=== PATIENT | female | born 1960 | race Caucasian/White ===

== ENCOUNTER 2017-04-23 09:59 | Inpatient (IN) | payer OTHER ==
[~2017-04-23] VITALS: Ht 167.6 cm; Wt 91.9 kg
[~2017-04-23 09:59] MED LIST: MULT-506 PO
[2017-04-23] MEDS ORDERED: SODIUM CHLORIDE 0.9% 1000ML 1,000 ML IV STA ×2 (10:36)
[2017-04-23] MEDS ORDERED: ONDANSETRON INJ 2 MG/ML 2 ML VIAL IV STA (10:36)
[2017-04-23] MEDS ORDERED: IBUPROFEN 200 MG TAB PO STA (10:40)
--- NOTE | 2017-04-23 10:40 | EMERGENCY ROOM VISIT NOTE ---
History Report prepared by Marlo: Elli Lerner Under the Supervision of: Dr. Torin Garza M.D. First contact with patient: 10:08 Chief Complaint: FEVER Stated Complaint: FEVER, LOWER FACE NUMB, NECK PAIN, V History of Present Illness The patient is a 56 year old white female with no past medical history who presents to the ED with a cc of of a intermittent fever beginning 1 week ago. The patient states that she has been having flu-like symptoms for the last week with back pain. She reports that she has taken Tylenol and Advil without relief of her symptoms. Pt notes that she was seen at [facility] today and her fever was 104. Positive back pain, nausea. slight sore throat, vomiting, cough, dysuria. Pt was seen at [facility] and notes that 2 people at work have had similar symptoms that resolved sooner. Negative leg swelling, history of kidney stones. She did not get the flu shot yet. Source of History: patient Onset: 1 week ago Position: other (global) Quality: other (fever) Timing: intermittent Associated Symptoms: + sorethroat, + cough, + nausea, + vomiting, + back pain, + urinary symptoms Note: No leg swelling. Review of Systems See HPI for pertinent positives and negatives. A total of ten systems were reviewed and were otherwise negative. Past Medical & Surgical Medical Problems: (1) Cellulitis of left foot Family History No pertinent family history stated. Social History Smoking Status: Never Smoker Marital Status: Housing Status: lives with significant other Current/Historical Medications Scheduled Ocuvite Preservision (Ocuvite Preservision), 1 TAB PO DAILY Allergies Coded Allergies: No Known Allergies (Verified , 04/23/17) Physical Exam Vital Signs Date Time Temp Pulse Resp B/P (MAP) Pulse Ox O2 Delivery O2 Flow Rate FiO2 04/23/17 16:51 36.9 61 16 100/59 100 Room Air 04/23/17 15:36 62 18 106/62 100 Room Air 04/23/17 15:15 100 Room Air 04/23/17 14:55 59 04/23/17 14:46 36.9 54 16 113/59 97 Room Air 04/23/17 12:48 36.8 04/23/17 12:46 62 16 109/56 100 Room Air 04/23/17 11:49 74 24 120/60 100 Room Air 04/23/17 11:00 99 Room Air 04/23/17 10:56 72 14 90/55 98 Room Air 04/23/17 10:14 81 04/23/17 10:01 39.1 91 18 136/80 100 Room Air Physical Exam GENERAL: Awake, alert, well-appearing, NAD HENT: Normocephalic, atraumatic. EYES: Normal conjunctiva. Sclera non-icteric. NECK: Supple. No nuchal rigidity. FROM. No evidence of meningismus, no nuchal rigidity. RESPIRATORY: CTAB, no rhonchi, wheezing, crackles CARDIAC: RRR, no MRG ABDOMEN: Soft, BS+, Epigastric TTP, no suprapubic or upper quadrant tenderness MSK: No chest wall TTP, no LE edema, right sided CVA TTP NEURO: GCS 15, CN 2-12 intact, moves all 4s on command SKIN: No rash or jaundice noted. No rashes or vesicles noted. Medical Decision & Procedures ER Provider Diagnostic Interpretation: Radiology results as stated below per my review and radiologist interpretation: CHEST ONE VIEW PORTABLE FINDINGS: The lungs are clear. Cardiac silhouette is normal in size. No pleural effusions. No pneumothorax. IMPRESSION: No acute process. Electronically signed by: Ari Alonzo M.D. 04/23/2017 11:40 AM Dictated Date/Time: 04/23/2017 11:40 AM ABDOMEN AND PELVIS CT WITH IV CONTRAST COMPARISON STUDY: None. FINDINGS: The lung bases are clear. No pneumoperitoneum. No pneumatosis. No fractures within the visualized osseous structures. The gallbladder is distended with a few punctate gallstones. There is gallbladder wall thickening and pericholecystic inflammatory change. This is consistent with acute cholecystitis. Normal caliber common bile duct measuring 5 mm. The spleen, adrenal glands, pancreas, and kidneys are unremarkable. There are 2 hypodense lesions within the left hepatic lobe. These likely represent cysts. The dominant lesion measures 2.3 cm. No bowel wall thickening or obstruction. Normal appendix. The bladder, uterus, bilateral adnexa are unremarkable. IMPRESSION: 1. Above findings consistent with acute cholecystitis. 2. No bowel wall thickening or obstruction. 3. Left hepatic lobe cyst. Electronically signed by: Ari Alonzo M.D. 04/23/2017 1:59 PM Dictated Date/Time: 04/23/2017 1:53 PM Laboratory Results 04/23/17 10:12 Red Blood Count 4.41, Mean Corpuscular Volume 87.1, Mean Corpuscular Hemoglobin 30.2, Mean Corpuscular Hemoglobin Concent 34.6, Mean Platelet Volume 9.8, Neutrophils (%) (Auto) 83.8, Lymphocytes (%) (Auto) 5.7, Monocytes (%) (Auto) 9.0, Eosinophils (%) (Auto) 0.7, Basophils (%) (Auto) 0.2, Neutrophils # (Auto) 11.96, Lymphocytes # (Auto) 0.82, Monocytes # (Auto) 1.29, Eosinophils # (Auto) 0.10, Basophils # (Auto) 0.03 04/23/17 10:12 04/23/17 16:26 Test 04/23/17 10:12 04/23/17 10:57 04/23/17 12:49 White Blood Count 14.29 K/uL (4.8-10.8) Red Blood Count 4.41 M/uL (4.2-5.4) Hemoglobin 13.3 g/dL (12.0-16.0) Hematocrit 38.4 % (37-47) Mean Corpuscular Volume 87.1 fL (80-100) Mean Corpuscular Hemoglobin 30.2 pg (25-34) Mean Corpuscular Hemoglobin Concent 34.6 g/dl (32-36) Platelet Count 272 K/uL (130-400) Mean Platelet Volume 9.8 fL (7.4-10.4) Neutrophils (%) (Auto) 83.8 % Lymphocytes (%) (Auto) 5.7 % Monocytes (%) (Auto) 9.0 % Eosinophils (%) (Auto) 0.7 % Basophils (%) (Auto) 0.2 % Neutrophils # (Auto) 11.96 K/uL (1.4-6.5) Lymphocytes # (Auto) 0.82 K/uL (1.2-3.4) Monocytes # (Auto) 1.29 K/uL (0.11-0.59) Eosinophils # (Auto) 0.10 K/uL (0-0.5) Basophils # (Auto) 0.03 K/uL (0-0.2) RDW Standard Deviation 40.5 fL (36.4-46.3) RDW Coefficient of Variation 12.6 % (11.5-14.5) Immature Granulocyte % (Auto) 0.6 % Immature Granulocyte # (Auto) 0.09 K/uL (0.00-0.02) Prothrombin Time 12.4 SECONDS (9.0-12.0) Prothromb Time International Ratio 1.2 (0.9-1.1) Activated Partial Thromboplast Time 31.7 SECONDS (21.0-31.0) Partial Thromboplastin Ratio 1.2 Anion Gap 12.0 mmol/L (3-11) Est Creatinine Clear Calc Drug Dose 84.3 ml/min Estimated GFR () 98.4 Estimated GFR (Non- 84.9 BUN/Creatinine Ratio 12.8 (10-20) Calcium Level 8.5 mg/dl (8.5-10.1) Magnesium Level 2.0 mg/dl (1.8-2.4) Total Bilirubin 0.9 mg/dl (0.2-1) Direct Bilirubin 0.3 mg/dl (0-0.2) Aspartate Amino Transf (AST/SGOT) 68 U/L (15-37) Alanine Aminotransferase (ALT/SGPT) 38 U/L (12-78) Alkaline Phosphatase 222 U/L (45-117) Total Protein 7.2 gm/dl (6.4-8.2) Albumin 2.8 gm/dl (3.4-5.0) Lipase 121 U/L (73-393) Thyroid Stimulating Hormone (TSH) 0.829 uIu/ml (0.300-4.500) Influenza Type A Antigen Neg for Influ A (NEG) Influenza Type B Antigen Neg for Influ B (NEG) Urine Color YELLOW Urine Appearance CLEAR (CLEAR) Urine pH 7.5 (4.5-7.5) Urine Specific [place] 1.005 (1.000-1.030) Urine Protein NEG (NEG) Urine Glucose (UA) NEG (NEG) Urine Ketones NEG (NEG) Urine Occult Blood NEG (NEG) Urine Nitrite NEG (NEG) Urine Bilirubin NEG (NEG) Urine Urobilinogen POS (NEG) Urine Leukocyte Esterase SMALL (NEG) Urine WBC (Auto) 1-5 /hpf (0-5) Urine RBC (Auto) 0-4 /hpf (0-4) Urine Hyaline Casts (Auto) 0 /lpf (0-5) Urine Epithelial Cells (Auto) >30 /lpf (0-5) Urine Bacteria (Auto) NEG (NEG) Laboratory results reviewed by me Medications Administered Medications (Trade) Dose Ordered Sig/Estela Route Start Time Stop Time Status Last Admin Dose Admin Sodium Chloride 1,000 ml @ 999 mls/hr Q1H1M STAT IV 04/23/17 10:36 04/23/17 11:36 DC 04/23/17 10:36 999 MLS/HR Ondansetron HCl (Zofran Inj) 4 mg NOW STAT IV 04/23/17 10:36 04/23/17 10:39 DC 04/23/17 11:01 4 MG Sodium Chloride 1,000 ml @ 999 mls/hr Q1H1M STAT IV 04/23/17 10:36 04/23/17 11:36 DC 04/23/17 10:36 999 MLS/HR Ibuprofen (Advil Tab) 400 mg NOW STAT PO 04/23/17 10:40 04/23/17 10:41 DC 04/23/17 11:02 400 MG Magnesium Sulfate (Magnesium Sulfate) 1 gm NOW STAT IV 04/23/17 11:53 04/23/17 11:55 DC 04/23/17 13:11 1 GM Potassium Chloride (Tina Ciel Elix) 40 meq NOW STAT PO 04/23/17 11:53 04/23/17 11:55 DC 04/23/17 13:11 40 MEQ Ciprofloxacin/ Dextrose (Cipro / D5W) 400 mg NOW STAT IV 04/23/17 14:06 04/23/17 14:07 DC 04/23/17 14:42 400 MG Metronidazole (Flagyl / Nss) 500 mg NOW STAT IV 04/23/17 14:06 04/23/17 14:07 DC 04/23/17 15:31 500 MG ECG Indication: other (fever) Rate (beats per minute): 71 Rhythm: normal sinus Findings: no ectopy, other (normal intervals, t wave flattening anterior, no other STS changes or t wave inversions) ED Course 1008: The patient was evaluated in room A4. A complete history and physical exam was performed. 1414: I spoke to Dr. Randolph of general surgery. He will evaluate the patient. The patient will go to the operating room. 1612: The patient is going to the operating room with Dr. Randolph of general surgery. Upon reexamination, the patient was doing well. I discussed the test results and treatment plan with her. The patient will be evaluated for further management. Medical Decision Differential diagnosis: Etiologies such as renal colic, appendicitis, diverticulitis, mesenteric ischemia, aortic pathology, infections, inflammatory bowel disease, PUD, biliary pathology, UTI, as well as others were entertained. Patient was seen and evaluated at the bedside. Patient has been complaining of some fever for the last several days and today [facility] TEMPERATURE 104. Patient was given Tylenol this time. Patient has been complaining of some body aches as well as to some back pain. Patient denies any neurologic symptoms including weakness numbness. She denies any trauma. She states that 2 other family members have also been sick with similar symptoms however they improved after several days. Patient denies any history of IV drug abuse, no unintended weight loss, history of cancer, immunosuppressants, or chronic steroids. Patient has had some scant cough that has been nonproductive. Patient did not receive flu shot. Patient had blood work, supportive care, chest x-ray, and a CT the abdomen pelvis given her right- sided CVA tenderness and high fever. Patient's urine and chest x-ray clear. Patient did have a white count of 14. Patient's CT concerning for acute cholecystitis. CBD is not dilated. Patient did have mild elevations in her alkaline phosphatase but not in her T bili. Patient was given antibiotics and surgical consult. He agreed that the patient would benefit from a cholecystectomy today. Patient was admitted to general surgery. Medication Reconcilliation Current Medication List: was personally reviewed by me Blood Pressure Screening Patient's blood pressure: Elevated blood pressure Blood pressure disposition: Elevated BP felt to be situational Consults Time Called: 1410 Consulting Physician: Dr. Randolph - General Surgery Returned Call: [address] Randolph of general surgery. He will evaluate the patient. The patient will go to the operating room. Impression Primary Impression: Fever Additional Impressions: Acute cholecystitis Abdominal pain Scribe Attestation The scribe's documentation has been prepared under my direction and personally reviewed by me in its entirety. I confirm that the note above accurately reflects all work, treatment, procedures, and medical decision making performed by me. Departure Information Dispostion Being Evaluated By Surgeon Mahad Langley H.,M.D. (PCP) Patient Instructions My [facility] Problem Qualifiers Primary Impression: Fever Fever type: unspecified Qualified Codes: R50.9 - Fever, unspecified Additional Impressions: Abdominal pain Abdominal location: generalized Qualified Codes: R10.84 - Generalized abdominal pain
[2017-04-23] MEDS ORDERED: MULT-190 PO (10:45)
[2017-04-23] MEDS ORDERED: OPTIRAY 320 IV PRN (11:00)
[2017-04-23 11:05] LABS: BASO % 0.2 %; BASO ABS # 0.03 K/uL (0-0.2); COMPLETE YES; EOS % 0.7 %; HEMATOCRIT 38.4 % (37-47); IG% 0.6 %; LYMPH % 5.7 %; LYMPH ABS # 0.82 K/uL (1.2-3.4); MEAN CELL VOLUME 87.1 fL (80-100); MEAN CORPUSCULAR HEMOGLOBIN 30.2 pg (25-34); MEAN CORPUSCULAR HGB CONC 34.6 g/dl (32-36); MEAN PLATELET VOLUME 9.8 fL (7.4-10.4); NEUT % 83.8 %; PLATELET COUNT 272 K/uL (130-400); RED BLOOD COUNT 4.41 M/uL (4.2-5.4); WHITE BLOOD COUNT 14.29 K/uL (4.8-10.8)
[2017-04-23 11:14] LABS: BUN/CREATININE RATIO 12.8 (10-20); CALCIUM 8.5 mg/dl (8.5-10.1); CREATININE 0.79 mg/dl (0.60-1.20); POTASSIUM 2.8 mmol/L (3.5-5.1)
[2017-04-23 11:15] LABS: INR 1.2 (0.9-1.1); PARTIAL THROMBOPLASTIN RATIO 1.2; PROTHROMBIN TIME (PATIENT) 12.4 SECONDS (9.0-12.0)
[2017-04-23 11:25] LABS: THYROID STIMULATING HORMONE 0.829 uIu/ml (0.300-4.500)
--- NOTE | 2017-04-23 11:41 | DIAGNOSTIC IMAGING REPORT ---
CHEST ONE VIEW PORTABLE HISTORY: EVALUATE WEAKNESS COMPARISON: None. FINDINGS: The lungs are clear. Cardiac silhouette is normal in size. No pleural effusions. No pneumothorax. IMPRESSION: No acute process. Electronically signed by: rAi Alonzo M.D. 04/23/2017 11:40 AM Dictated Date/Time: 04/23/2017 11:40 AM
[2017-04-23] MEDS ORDERED: MAGNESIUM SULFATE 1GM / D5W 1 GM BAG IV STA (11:53)
[2017-04-23] MEDS ORDERED: POTASSIUM CHLORIDE 20 MEQ/15 ML UDC PO STA ×2 (11:53→18:16)
[2017-04-23 13:11] LABS: URINE APPEARANCE CLEAR (CLEAR); URINE BILIRUBIN NEG (NEG); URINE COLOR YELLOW; URINE EPITHELIAL CELL AUTO >30 /lpf (0-5); URINE NITRITE NEG (NEG); URINE PH 7.5 (4.5-7.5); URINE SPECIFIC GRAVITY 1.005 (1.000-1.030); UROBILINOGEN POS (NEG)
[2017-04-23 13:12] LABS: MANUAL MICROSCOPIC REQUIRED? NO; REVIEW REQ? NO
--- NOTE | 2017-04-23 14:00 | DIAGNOSTIC IMAGING REPORT ---
ABDOMEN AND PELVIS CT WITH IV CONTRAST CT DOSE: 839.72 mGy.cm HISTORY: Right-sided abdominal pain., Tmax 104, ?urinary symptoms TECHNIQUE: Multiaxial CT images of the abdomen and pelvis were performed following the use of intravenous contrast. A dose lowering technique was utilized adhering to the principles of ALARA. COMPARISON STUDY: None. FINDINGS: The lung bases are clear. No pneumoperitoneum. No pneumatosis. No fractures within the visualized osseous structures. The gallbladder is distended with a few punctate gallstones. There is gallbladder wall thickening and pericholecystic inflammatory change. This is consistent with acute cholecystitis. Normal caliber common bile duct measuring 5 mm. The spleen, adrenal glands, pancreas, and kidneys are unremarkable. There are 2 hypodense lesions within the left hepatic lobe. These likely represent cysts. The dominant lesion measures 2.3 cm. No bowel wall thickening or obstruction. Normal appendix. The bladder, uterus, bilateral adnexa are unremarkable. IMPRESSION: 1. Above findings consistent with acute cholecystitis. 2. No bowel wall thickening or obstruction. 3. Left hepatic lobe cyst. Electronically signed by: Ari Alonzo M.D. 04/23/2017 1:59 PM Dictated Date/Time: 04/23/2017 1:53 PM
[2017-04-23] MEDS ORDERED: METRONIDAZOLE 500MG / 100ML NSS IV STA (14:06)
[2017-04-23] MEDS ORDERED: CIPROFLOXACIN 400MG / 200ML D5W IV STA (14:06)
--- NOTE | 2017-04-23 14:41 | History and Physical ---
History & Physical Date Apr 23, 2017. Chief Complaint fever and abdominal pain- this is a consult from Dr Adler History of Present Illness The patient is a 56 year old female with complaints of Past Medical/Surgical History Medical Problems: (1) Cellulitis of left foot Additional History Hepatic Disease: No Endocrine Disorder: No Kidney Disease: No Hypertension: No Heart Disease: No Allergies Coded Allergies: No Known Allergies (Verified , 04/23/17) Home Medications Scheduled Ocuvite Preservision (Ocuvite Preservision), 1 TAB PO DAILY Physical Examination Skin: warm/dry Eyes: sclerae normal Head: atraumatic Neck: supple Respiratory/Chest: no respiratory distress Cardiovascular: + pertinent finding (tachy) Abdomen / GI: + pertinent finding (RUQ tenderness) Neurologic/Psych: alert Diagnosis severe acute cholecystitis Plan of Treatment pt is for laparoscopic cholecystectomy, possible open operation for OR today IV atbx, fluids
[2017-04-23] MEDS ORDERED: LACTATED RINGER'S 1000ML 1,000 ML IV SCH (14:45)
[2017-04-23 15:15] VITALS: O2SAT 100; Ht 167.6 cm; Wt 91.9 kg
[2017-04-23] MEDS ORDERED: BUPIVACAINE 0.5 % 5 MG/1 ML MPF 30ML VIAL ONE (16:52)
[2017-04-23] MEDS ORDERED: POTASSIUM CHLORIDE 10 MEQ / 100ML WTR IV STA (17:46)
[2017-04-23] MEDS ORDERED: ACETAMINOPHEN IV 100 ML IV PRN (18:45)
[2017-04-23] MEDS ORDERED: ONDANSETRON INJ 2 MG/ML 2 ML VIAL IV PRN (18:45)
--- NOTE | 2017-04-23 18:54 | History and Physical ---
History & Physical Date & Time of Service: Apr 23, 2017 at 18:40 Chief Complaint: Fever, Lower Face Numb, Neck Pain, V Primary Care Physician: Mahad Diamond M.D. History of Present Illness Source: patient, family, hospital records The patient is a 56-year-old female with no significant past medical history, who presents to the emergency department with 1 week of intermittent fever and chills with flulike symptoms. She was seen in [facility] today with temperature 104, worsening back pain, nausea, sore throat, and vomiting. Reportedly there were 2 people at work with similar symptoms that resolved sooner. She has not had any recent travels. Her oral intake has been progressively declining over the past week Past Medical/Surgical History Medical Problems: (1) Cellulitis of left foot Status: Resolved Family History Noncontributory Social History Smoking Status: Never Smoker Smokeless Tobacco Use: No Alcohol Use: none Drug Use: none Marital Status: Housing status: lives with family Occupational Status: employed Immunizations History of Influenza Vaccine: Unknown History of Tetanus Vaccine?: Unknown History of Pneumococcal: Unknown History of Hepatitis B Vaccine: Unknown Multi-Drug Resistant Organisms History of MDRO: No Allergies Coded Allergies: No Known Allergies (Verified , 04/23/17) Home Medications Scheduled Ocuvite Preservision (Ocuvite Preservision), 1 TAB PO DAILY Review of Systems The patient denies chest pain, palpitations, shortness of breath, cough, lower extremity swelling, vision change, hearing change, blood in urine or stool, dysuria, urinary frequency or urgency, lightheadedness , dizziness, headache, memory loss, rash, abnormal bruising or bleeding, imbalance, focal weakness, numbness or tingling in arms or legs, generalized arthralgias or myalgias, neck pain, or night sweats. The review of systems is otherwise negative other than for that already noted above, and at least 10 systems have been reviewed. Physical Exam Vital Signs Date Time Temp Pulse Resp B/P (MAP) Pulse Ox O2 Delivery O2 Flow Rate FiO2 04/23/17 18:10 60 16 120/60 100 Room Air 04/23/17 16:51 36.9 61 16 100/59 100 Room Air 04/23/17 15:36 62 18 106/62 100 Room Air 04/23/17 15:15 100 Room Air 04/23/17 14:55 59 10/15/17 14:46 36.9 54 16 113/59 97 Room Air 04/23/17 12:48 36.8 04/23/17 12:46 62 16 109/56 100 Room Air 04/23/17 11:49 74 24 120/60 100 Room Air 04/23/17 11:00 99 Room Air 04/23/17 10:56 72 14 90/55 98 Room Air 04/23/17 10:14 81 04/23/17 10:01 39.1 91 18 136/80 100 Room Air The patient is awake, well-developed and adequately nourished, alert and oriented 3, normocephalic and atraumatic, looks acutely ill with sweats, lying in bed and in mild distress. HEENT--PERRL, EOMI, mucous membranes and oropharynx very dry. Neck--supple, no JVD or bruits, thyroid normal, trachea midline, no adenopathy. Heart--normal S1 and S2, no extra beats, no murmurs, rubs or gallops. Lungs--clear bilaterally with good air movement, no respiratory distress, no accessory muscle use. Abdomen--decreased bowel sounds and soft. Tender epigastric and right upper quadrant. Nondistended. no hernias or masses, no organomegaly. Extremities--no cyanosis, clubbing or edema. There are good distal pulses b/l. Dermatologic--normal skin turgor, normal color, warm and dry, no abnormal lymph nodes, no rash. Neurologic--cranial nerves II through XII grossly intact, motor and sensory examination normal. Rheumatologic--normal range of motion, nontender, muscles and joints. Psychiatric--normal affect. Diagnostics Laboratory Results Results Past 24 Hours Test 04/23/17 10:12 04/23/17 10:57 04/23/17 12:49 04/23/17 16:26 Range/Units White Blood Count 14.29 4.8-10.8 K/uL Red Blood Count 4.41 4.2-5.4 M/uL Hemoglobin 13.3 12.0-16.0 g/dL Hematocrit 38.4 37-47 % Mean Corpuscular Volume 87.1 80-100 fL Mean Corpuscular Hemoglobin 30.2 25-34 pg Mean Corpuscular Hemoglobin Concent 34.6 32-36 g/dl Platelet Count 272 130-400 K/uL Mean Platelet Volume 9.8 7.4-10.4 fL Neutrophils (%) (Auto) 83.8 % Lymphocytes (%) (Auto) 5.7 % Monocytes (%) (Auto) 9.0 % Eosinophils (%) (Auto) 0.7 % Basophils (%) (Auto) 0.2 % Neutrophils # (Auto) 11.96 1.4-6.5 K/uL Lymphocytes # (Auto) 0.82 1.2-3.4 K/uL Monocytes # (Auto) 1.29 0.11-0.59 K/uL Eosinophils # (Auto) 0.10 0-0.5 K/uL Basophils # (Auto) 0.03 0-0.2 K/uL RDW Standard Deviation 40.5 36.4-46.3 fL RDW Coefficient of Variation 12.6 11.5-14.5 % Immature Granulocyte % (Auto) 0.6 % Immature Granulocyte # (Auto) 0.09 0.00-0.02 K/uL Prothrombin Time 12.4 9.0-12.0 SECONDS Prothromb Time International Ratio 1.2 0.9-1.1 Activated Partial Thromboplast Time 31.7 21.0-31.0 SECONDS Partial Thromboplastin Ratio 1.2 Sodium Level 135 136-145 mmol/L Potassium Level 2.8 3.5-5.1 mmol/L Chloride Level 100 98-107 mmol/L Carbon Dioxide Level 23 21-32 mmol/L Anion Gap 12.0 3-11 mmol/L Blood Urea Nitrogen 10 7-18 mg/dl Creatinine 0.79 0.60-1.20 mg/dl Est Creatinine Clear Calc Drug Dose 84.3 ml/min Estimated GFR () 98.4 Estimated GFR (Non- 84.9 BUN/Creatinine Ratio 12.8 10-20 Random Glucose 106 70-99 mg/dl Calcium Level 8.5 8.5-10.1 mg/dl Magnesium Level 2.0 1.8-2.4 mg/dl Total Bilirubin 0.9 0.2-1 mg/dl Direct Bilirubin 0.3 0-0.2 mg/dl Aspartate Amino Transf (AST/SGOT) 68 15-37 U/L Alanine Aminotransferase (ALT/SGPT) 38 12-78 U/L Alkaline Phosphatase 222 45-117 U/L Total Protein 7.2 6.4-8.2 gm/dl Albumin 2.8 3.4-5.0 gm/dl Lipase 121 73-393 U/L Thyroid Stimulating Hormone (TSH) 0.829 0.300-4.500 uIu/ml Influenza Type A Antigen Neg for Influ A NEG Influenza Type B Antigen Neg for Influ B NEG Urine Color YELLOW Urine Appearance CLEAR CLEAR Urine pH 7.5 4.5-7.5 Urine Specific [place] 1.005 1.000-1.030 Urine Protein NEG NEG Urine Glucose (UA) NEG NEG Urine Ketones NEG NEG Urine Occult Blood NEG NEG Urine Nitrite NEG NEG Urine Bilirubin NEG NEG Urine Urobilinogen POS NEG Urine Leukocyte Esterase SMALL NEG Urine WBC (Auto) 1-5 0-5 /hpf Urine RBC (Auto) 0-4 0-4 /hpf Urine Hyaline Casts (Auto) 0 0-5 /lpf Urine Epithelial Cells (Auto) >30 0-5 /lpf Urine Bacteria (Auto) NEG NEG Test 04/23/17 17:10 Range/Units Potassium Level 2.7 3.5-5.1 mmol/L Microbiology Results 04/23/17 Blood Culture, Received Pending 04/23/17 Blood Culture, Received Pending 04/23/17 Urine Culture, Received Pending Diagnostic Radiology Patient Name: LESLY MANRIQUEZ Unit Number: [id number] Dictated: 04/23/171139 Transcribed: 04/23/171139 [facility] Printed Date/Time: [~ rep prt dt]/[~ rep prt tm] [~ rep ct labl] - [~ rep ct ivnm] [facility] [place] [address] Dictated: 04/23/171139 Transcribed: 04/23/171139 [facility] Printed Date/Time: [~ rep prt dt]/[~ rep prt tm] [~ rep ct labl] - [~ rep ct ivnm] [~ rep ct add3]] CHEST ONE VIEW PORTABLE HISTORY: EVALUATE WEAKNESS COMPARISON: None. FINDINGS: The lungs are clear. Cardiac silhouette is normal in size. No pleural effusions. No pneumothorax. IMPRESSION: No acute process. Electronically signed by: Ari Alonzo M.D. 04/23/2017 11:40 AM Dictated Date/Time: 04/23/2017 11:40 AM The status of this report is Signed. Draft = Not yet reviewed or approved by Radiologist. Signed = Reviewed and approved by Radiologist. <AttendingPhy></AttendingPhy> <FamilyPhy>Mahad Diamond M.D.</FamilyPhy> < PrimaryPhy>Mahad Diamond M.D.</PrimaryPhy> <UnitNumber>[id number]</ UnitNumber> <VisitNumber>[id number]</VisitNumber> <PatientName>LESLY MANRIQUEZ</PatientName> <DateOfBirth>1960</DateOfBirth> <Location>[facility]</ Location> <ServiceDate>04/23/17</ServiceDate> <MNE>ESINDI</MNE> <OrderingPhy> Torin Garza M.D.</OrderingPhy> <OrderingPhyMNE>f rep ord dr dias</ OrderingPhyMNE> <DictatingPhyMNE>f rep dict dr dias</DictatingPhyMNE> <CCListMNE> f rep ct mne</CCListMNE> <AdmittingPhyMNE>f pt admit dr dias</AdmittingPhyMNE> < AttendingPhyMNE>f pt attend dr dias</AttendingPhyMNE> <ConsultingPhyMNE>f pt consult dr dias</ConsultingPhyMNE> <FamilyPhyMNE>f pt fam dr dias</FamilyPhyMNE> <OtherPhyMNE>f pt other dr dias</OtherPhyMNE> < PrimaryPhyMNE>f pt prim care dr dias</PrimaryPhyMNE> <ReferringPhyMNE>f pt referring dr dias</ReferringPhyMNE> Patient Name: LESLY MANRIQUEZ Unit Number: [id number] Dictated: 04/23/171352 Transcribed: 04/23/171352 [facility] Printed Date/Time: [~ rep prt dt]/[~ rep prt tm] [~ rep ct labl] - [~ rep ct ivnm] [facility] [place] [address] Dictated: 04/23/17 135 Transcribed: 04/23/171352 [facility] Printed Date/Time: [~ rep prt dt]/[~ rep prt tm] [~ rep ct labl] - [~ rep ct ivnm] ABDOMEN AND PELVIS CT WITH IV CONTRAST CT DOSE: 839.72 mGy.cm HISTORY: Right-sided abdominal pain., Tmax 104, ?urinary symptoms TECHNIQUE: Multiaxial CT images of the abdomen and pelvis were performed following the use of intravenous contrast. A dose lowering technique was utilized adhering to the principles of ALARA. COMPARISON STUDY: None. FINDINGS: The lung bases are clear. No pneumoperitoneum. No pneumatosis. No fractures within the visualized osseous structures. The gallbladder is distended with a few punctate gallstones. There is gallbladder wall thickening and pericholecystic inflammatory change. This is consistent with acute cholecystitis. Normal caliber common bile duct measuring 5 mm. The spleen, adrenal glands, pancreas, and kidneys are unremarkable. There are 2 hypodense lesions within the left hepatic lobe. These likely represent cysts. The dominant lesion measures 2.3 cm. No bowel wall thickening or obstruction. Normal appendix. The bladder, uterus, bilateral adnexa are unremarkable. IMPRESSION: 1. Above findings consistent with acute cholecystitis. 2. No bowel wall thickening or obstruction. 3. Left hepatic lobe cyst. Electronically signed by: Ari Alonzo M.D. 04/23/2017 1:59 PM Dictated Date/Time: 04/23/2017 1:53 PM The status of this report is Signed. Draft = Not yet reviewed or approved by Radiologist. Signed = Reviewed and approved by Radiologist. <AttendingPhy></AttendingPhy> <FamilyPhy>Mahad Diamond M.D.</FamilyPhy> < PrimaryPhy>Mahad Diamond M.D.</PrimaryPhy> <UnitNumber>[id number]</ UnitNumber> <VisitNumber>[id number]</VisitNumber> <PatientName>LESLY MANRIQUEZ</PatientName> <DateOfBirth>1960</DateOfBirth> <Location>[facility]</ Location> <ServiceDate>04/23/17</ServiceDate> <MNE>ESINDI</MNE> <OrderingPhy> Torin Garza M.D.</OrderingPhy> <OrderingPhyMNE>f rep ord dr dias</ OrderingPhyMNE> <DictatingPhyMNE>f rep dict dr dias</DictatingPhyMNE> <CCListMNE> f rep ct mne</CCListMNE> <AdmittingPhyMNE>f pt admit dr dias</AdmittingPhyMNE> < AttendingPhyMNE>f pt attend dr dias</AttendingPhyMNE> <ConsultingPhyMNE>f pt consult dr dias</ConsultingPhyMNE> <FamilyPhyMNE>f pt fam dr dias</FamilyPhyMNE> <OtherPhyMNE>f pt other dr dias</OtherPhyMNE> < PrimaryPhyMNE>f pt prim care dr dias</PrimaryPhyMNE> <ReferringPhyMNE>f pt referring dr dias</ReferringPhyMNE> EKG EKG shows normal sinus rhythm at 71 bpm, nonspecific ST-T changes. Impression Assessment and Plan Abnormal EKG/hypokalemia-- The patient will be admitted to telemetry for serial cardiac enzymes, cardiac rhythm monitoring and a 2-D echocardiogram with Dopplers. Add troponin to ED labs. Nothing by mouth status Give total 40 mEq of potassium IV. Change IV fluids of normal saline with KCl 20 mEq 150 ML's per hour. Follow serial BMP and magnesium levels. Acute cholecystitis-- Receive Cipro and Flagyl IV in the ED. Place on Zosyn 3.375 mg IV every 6 hours. Zofran 4 mg IV every 6 hours when necessary. Famotidine 20 mg IV every 12 hours Consults Gen. surgery Dr. Randolph. Level of Care Telemetry Advanced Directives Existing Advance Directive: No Existing Living Will: No Existing Power of Route Delivery Manager: No Resuscitation Status FULL RESUSCITATION VTE Prophylaxis VTE Risk Assessment Done? Y/N: Yes Risk Level: Moderate Given or contraindicated: SCD's Social Service Consult None Apply
[2017-04-23 19:41] VITALS: BP 125/63; PULSE 78; TEMP 37.1; O2SAT 100
[2017-04-23 20:00] VITALS: O2SAT 100
[2017-04-23] MEDS: NSS + 20MEQ KCL 1000ML 1,000 ML IV SCH (20:09)
[2017-04-23] MEDS ORDERED: PIPERACILL/TAZOBAC IV 3.375 GM in DEXTROSE 5% 100ML IV ONE (20:15)
[2017-04-23] MEDS ORDERED: PIPERACILL/TAZOBAC CONSULT ACTIVE PRN (20:15)
[2017-04-23] MEDS: POTASSIUM CHLR 10 MEQ / WTR 10 MEQ in PREMIXED WATER 100 ML IV SCH ×2 (21:11→22:21)
[2017-04-23] MEDS: FAMOTIDINE IV INJ 20 MG in DEXTROSE 5% 100ML 100 ML IV SCH (23:18)
[2017-04-23 23:40] VITALS: BP 134/63; PULSE 73; TEMP 36.9; O2SAT 100
[2017-04-23 23:59] VITALS: O2SAT 100
[2017-04-24] VITALS (13 sets, daily range): BP systolic 112–143; BP diastolic 59–83; PULSE 64–79; TEMP 36.3–36.9; O2SAT 93–100
[2017-04-24 03:03] LABS: BASO % 0.2 %; BASO ABS # 0.02 K/uL (0-0.2); COMPLETE YES; EOS % 1.6 %; HEMATOCRIT 34.7 % (37-47); IG% 0.5 %; LYMPH % 11.1 %; LYMPH ABS # 1.07 K/uL (1.2-3.4); MEAN CELL VOLUME 87.8 fL (80-100); MEAN CORPUSCULAR HEMOGLOBIN 29.4 pg (25-34); MEAN CORPUSCULAR HGB CONC 33.4 g/dl (32-36); MEAN PLATELET VOLUME 9.2 fL (7.4-10.4); MONO % 11.3 %; NEUT % 75.3 %; PLATELET COUNT 222 K/uL (130-400); RED BLOOD COUNT 3.95 M/uL (4.2-5.4); WHITE BLOOD COUNT 9.62 K/uL (4.8-10.8)
[2017-04-24] MEDS: PIPERACILL/TAZOBAC IV 3.375 GM in DEXTROSE 5% 100ML 100 ML IV SCH ×3 (03:05→18:30)
[2017-04-24] MEDS: NSS + 20MEQ KCL 1000ML 1,000 ML IV SCH ×4 (03:05→22:15)
[2017-04-24 03:17] LABS: INR 1.2 (0.9-1.1); PARTIAL THROMBOPLASTIN RATIO 1.3
[2017-04-24 03:35] LABS: ALT/SGPT 28 U/L (12-78); AST/SGOT 34 U/L (15-37); BUN/CREATININE RATIO 8.4 (10-20); CALCIUM 7.3 mg/dl (8.5-10.1); CARBON DIOXIDE 22 mmol/L (21-32); CHLORIDE 110 mmol/L (98-107); CREATININE 0.61 mg/dl (0.60-1.20); GLUCOSE 99 mg/dl (70-99); MAGNESIUM 2.3 mg/dl (1.8-2.4); POTASSIUM 3.3 mmol/L (3.5-5.1); SODIUM 141 mmol/L (136-145)
[2017-04-24 03:38] LABS: ALKALINE PHOSPHATASE 190 U/L (45-117); CKMB/CK RATIO 0.9 (0-3.0)
[2017-04-24 04:02] LABS: BLOOD UREA NITROGEN 5 mg/dl (7-18)
--- NOTE | 2017-04-24 05:49 | Surgery Progress Note ---
Surgery Progress Note Date of Service Apr 24, 2017. Subjective awake, alert afeb, vitals stable nausea Objective Vital Signs: Date Time Temp Pulse Resp B/P (MAP) Pulse Ox O2 Delivery O2 Flow Rate FiO2 04/24/17 04:09 36.9 69 22 131/59 (83) 99 Room Air 04/24/17 04:03 100 Room Air 04/23/17 23:59 100 Room Air 04/23/17 23:40 36.9 73 22 134/63 (86) 100 Room Air 04/23/17 20:00 100 Room Air 04/23/17 19:41 37.1 78 20 125/63 (83) 100 Room Air 04/23/17 19:10 75 16 109/57 95 Room Air 04/23/17 18:10 60 16 120/60 100 Room Air 04/23/17 16:51 36.9 61 16 100/59 100 Room Air 04/23/17 15:36 62 18 106/62 100 Room Air 04/23/17 15:15 100 Room Air 04/23/17 14:55 59 04/23/17 14:46 36.9 54 16 113/59 97 Room Air 04/23/17 12:48 36.8 04/23/17 12:46 62 16 109/56 100 Room Air 04/23/17 11:49 74 24 120/60 100 Room Air 04/23/17 11:00 99 Room Air 04/23/17 10:56 72 14 90/55 98 Room Air 04/23/17 10:14 81 04/23/17 10:01 39.1 91 18 136/80 100 Room Air General Appearance: no apparent distress Respiratory/Chest: no respiratory distress Abdomen: soft Laboratory Results: Results Past 24 Hours Test 04/23/17 10:12 04/23/17 10:57 04/23/17 12:49 04/23/17 16:26 Range/Units White Blood Count 14.29 4.8-10.8 K/uL Red Blood Count 4.41 4.2-5.4 M/uL Hemoglobin 13.3 12.0-16.0 g/dL Hematocrit 38.4 37-47 % Mean Corpuscular Volume 87.1 80-100 fL Mean Corpuscular Hemoglobin 30.2 25-34 pg Mean Corpuscular Hemoglobin Concent 34.6 32-36 g/dl Platelet Count 272 130-400 K/uL Mean Platelet Volume 9.8 7.4-10.4 fL Neutrophils (%) (Auto) 83.8 % Lymphocytes (%) (Auto) 5.7 % Monocytes (%) (Auto) 9.0 % Eosinophils (%) (Auto) 0.7 % Basophils (%) (Auto) 0.2 % Neutrophils # (Auto) 11.96 1.4-6.5 K/uL Lymphocytes # (Auto) 0.82 1.2-3.4 K/uL Monocytes # (Auto) 1.29 0.11-0.59 K/uL Eosinophils # (Auto) 0.10 0-0.5 K/uL Basophils # (Auto) 0.03 0-0.2 K/uL RDW Standard Deviation 40.5 36.4-46.3 fL RDW Coefficient of Variation 12.6 11.5-14.5 % Immature Granulocyte % (Auto) 0.6 % Immature Granulocyte # (Auto) 0.09 0.00-0.02 K/uL Prothrombin Time 12.4 9.0-12.0 SECONDS Prothromb Time International Ratio 1.2 0.9-1.1 Activated Partial Thromboplast Time 31.7 21.0-31.0 SECONDS Partial Thromboplastin Ratio 1.2 Sodium Level 135 136-145 mmol/L Potassium Level 2.8 3.5-5.1 mmol/L Chloride Level 100 98-107 mmol/L Carbon Dioxide Level 23 21-32 mmol/L Anion Gap 12.0 3-11 mmol/L Blood Urea Nitrogen 10 7-18 mg/dl Creatinine 0.79 0.60-1.20 mg/dl Est Creatinine Clear Calc Drug Dose 84.3 ml/min Estimated GFR () 98.4 Estimated GFR (Non- 84.9 BUN/Creatinine Ratio 12.8 10-20 Random Glucose 106 70-99 mg/dl Calcium Level 8.5 8.5-10.1 mg/dl Magnesium Level 2.0 1.8-2.4 mg/dl Total Bilirubin 0.9 0.2-1 mg/dl Direct Bilirubin 0.3 0-0.2 mg/dl Aspartate Amino Transf (AST/SGOT) 68 15-37 U/L Alanine Aminotransferase (ALT/SGPT) 38 12-78 U/L Alkaline Phosphatase 222 45-117 U/L Total Protein 7.2 6.4-8.2 gm/dl Albumin 2.8 3.4-5.0 gm/dl Lipase 121 73-393 U/L Thyroid Stimulating Hormone (TSH) 0.829 0.300-4.500 uIu/ml Influenza Type A Antigen Neg for Influ A NEG Influenza Type B Antigen Neg for Influ B NEG Urine Color YELLOW Urine Appearance CLEAR CLEAR Urine pH 7.5 4.5-7.5 Urine Specific [place] 1.005 1.000-1.030 Urine Protein NEG NEG Urine Glucose (UA) NEG NEG Urine Ketones NEG NEG Urine Occult Blood NEG NEG Urine Nitrite NEG NEG Urine Bilirubin NEG NEG Urine Urobilinogen POS NEG Urine Leukocyte Esterase SMALL NEG Urine WBC (Auto) 1-5 0-5 /hpf Urine RBC (Auto) 0-4 0-4 /hpf Urine Hyaline Casts (Auto) 0 0-5 /lpf Urine Epithelial Cells (Auto) >30 0-5 /lpf Urine Bacteria (Auto) NEG NEG Test 04/23/17 17:10 04/24/17 02:54 Range/Units Potassium Level 2.7 3.3 3.5-5.1 mmol/L Troponin I < 0.015 < 0.015 0-0.045 ng/ml White Blood Count 9.62 4.8-10.8 K/uL Red Blood Count 3.95 4.2-5.4 M/uL Hemoglobin 11.6 12.0-16.0 g/dL Hematocrit 34.7 37-47 % Mean Corpuscular Volume 87.8 80-100 fL Mean Corpuscular Hemoglobin 29.4 25-34 pg Mean Corpuscular Hemoglobin Concent 33.4 32-36 g/dl Platelet Count 222 130-400 K/uL Mean Platelet Volume 9.2 7.4-10.4 fL Neutrophils (%) (Auto) 75.3 % Lymphocytes (%) (Auto) 11.1 % Monocytes (%) (Auto) 11.3 % Eosinophils (%) (Auto) 1.6 % Basophils (%) (Auto) 0.2 % Neutrophils # (Auto) 7.24 1.4-6.5 K/uL Lymphocytes # (Auto) 1.07 1.2-3.4 K/uL Monocytes # (Auto) 1.09 0.11-0.59 K/uL Eosinophils # (Auto) 0.15 0-0.5 K/uL Basophils # (Auto) 0.02 0-0.2 K/uL RDW Standard Deviation 41.0 36.4-46.3 fL RDW Coefficient of Variation 12.6 11.5-14.5 % Immature Granulocyte % (Auto) 0.5 % Immature Granulocyte # (Auto) 0.05 0.00-0.02 K/uL Prothrombin Time 13.0 9.0-12.0 SECONDS Prothromb Time International Ratio 1.2 0.9-1.1 Activated Partial Thromboplast Time 34.3 21.0-31.0 SECONDS Partial Thromboplastin Ratio 1.3 Sodium Level 141 136-145 mmol/L Chloride Level 110 98-107 mmol/L Carbon Dioxide Level 22 21-32 mmol/L Anion Gap 9.0 3-11 mmol/L Blood Urea Nitrogen 5 7-18 mg/dl Creatinine 0.61 0.60-1.20 mg/dl Est Creatinine Clear Calc Drug Dose 109.2 ml/min Estimated GFR () 119.1 Estimated GFR (Non- 102.8 BUN/Creatinine Ratio 8.4 10-20 Random Glucose 99 70-99 mg/dl Calcium Level 7.3 8.5-10.1 mg/dl Magnesium Level 2.3 1.8-2.4 mg/dl Total Bilirubin 0.6 0.2-1 mg/dl Direct Bilirubin 0.3 0-0.2 mg/dl Aspartate Amino Transf (AST/SGOT) 34 15-37 U/L Alanine Aminotransferase (ALT/SGPT) 28 12-78 U/L Alkaline Phosphatase 190 45-117 U/L Total Creatine Kinase 53 26-192 U/L Creatine Kinase MB 0.5 0.5-3.6 ng/ml Creatine Kinase MB Ratio 0.9 0-3.0 Total Protein 6.0 6.4-8.2 gm/dl Albumin 2.3 3.4-5.0 gm/dl Microbiology Results 04/23/17 Blood Culture, Received Pending 04/23/17 Blood Culture, Received Pending 04/23/17 Urine Culture, Received Pending Assessment & Plan 04/24/17- check am labs/ K+, check with medical team- plan for lap benjamin today if possible- suspect infected gallbladder
[2017-04-24] MEDS ORDERED: POTASSIUM CHLORIDE 20 MEQ/15 ML UDC PO STA (05:53)
[2017-04-24] MEDS: POTASSIUM CHLR 10MEQ / WTR IV SCH ×2 (06:35→08:09)
[2017-04-24] MEDS ORDERED: INFLUENZA ADMINISTRATION CHARGE ONE (07:00)
[2017-04-24] MEDS ORDERED: INFLUENZA VIRUS QUAD VACCINE 0.5 ML SYR IM. ONE (07:00)
[2017-04-24] MEDS: FAMOTIDINE IV INJ 20 MG in DEXTROSE 5% 100ML 100 ML IV SCH ×2 (07:00→18:30)
[2017-04-24 09:26] LABS: BUN/CREATININE RATIO 7.5 (10-20); CALCIUM 7.7 mg/dl (8.5-10.1); CREATININE 0.59 mg/dl (0.60-1.20); POTASSIUM 3.5 mmol/L (3.5-5.1)
[2017-04-24] MEDS ORDERED: PROPOFOL IV EMULSION 10 MG/ML 20 ML VIAL IV ONE (10:00)
[2017-04-24] MEDS ORDERED: LIDOCAINE HCL 2% 2 ML VIAL (20MG/ML) ONE (10:00)
[2017-04-24] MEDS ORDERED: ONDANSETRON INJ 2 MG/ML 2 ML VIAL ONE (10:00)
[2017-04-24] MEDS ORDERED: FENTANYL CITRATE INJ 50 MCG/1 ML 2 ML VIAL ONE (10:00)
[2017-04-24] MEDS ORDERED: SUCCINYLCHOLINE CHLORIDE 20 MG/ML 10 ML VIAL IV ONE (10:00)
[2017-04-24] MEDS ORDERED: GLYCOPYRROLATE INJ 0.2 MG/ML VIAL ONE (10:00)
[2017-04-24] MEDS ORDERED: EpHEDrine SULFATE INJ 50 MG/ML AMP ONE (10:00)
[2017-04-24] MEDS ORDERED: PHENYLEPHRINE HCL INJ 10 MG/ML VIAL ONE (10:00)
[2017-04-24] MEDS ORDERED: DEXAMETHASONE SOD INJ 4 MG/ML VIAL ONE (10:00)
[2017-04-24] MEDS ORDERED: MIDAZOLAM HCL 1 MG/ML 2ML VIAL ONE (10:00)
[2017-04-24] MEDS ORDERED: NEOSTIGMINE METHYLSULFATE 5 MG/5 ML SYR ONE (10:00)
[2017-04-24] MEDS ORDERED: PHENYLEPHRINE 100MCG/ML 5ML SYR IV PRN (10:15)
[2017-04-24] MEDS ORDERED: PROMETHAZINE HCL INJ 12.5 MG in SODIUM CHLORIDE 0.9% 50ML 50 ML IV PRN (10:15)
[2017-04-24] MEDS ORDERED: ATROPINE SULFATE 0.1 MG/ML 5ML SYR IV PRN (10:15)
[2017-04-24] MEDS ORDERED: EpHEDrine SULFATE INJ 50 MG/ML AMP IV PRN (10:15)
[2017-04-24] MEDS ORDERED: ONDANSETRON INJ 2 MG/ML 2 ML VIAL IV PRN (10:15)
[2017-04-24] MEDS ORDERED: LABETALOL HCL IV 5 MG/ML 20ML IV PRN (10:15)
[2017-04-24] MEDS ORDERED: CONRAY 60% 50 ML VIAL ONE (10:38)
[2017-04-24] MEDS ORDERED: BUPIVACAINE 0.5 % 5 MG/1 ML MPF 30ML VIAL ONE (10:39)
--- NOTE | 2017-04-24 11:03 | Progress Note ---
Subjective Date of Service: Apr 24, 2017. Subjective Pt evaluation today including: conversation w/ patient, physical exam, chart review, lab review, review of studies, conversation w/ it solutions sales consultant, review of inpatient medication list feeling fairly good notes that she's not having any pain (actually never did) just nausea. but right now that's controlled. no prior medical hx of concern, no cardio-pulmonary problems Problem List Medical Problems: (1) Abdominal pain Status: Acute (2) Acute cholecystitis Status: Acute (3) Fever Status: Acute Review of Systems all other ROS otherwise negative except for as above Objective Vital Signs Date Time Temp Pulse Resp B/P (MAP) Pulse Ox O2 Delivery O2 Flow Rate FiO2 04/24/17 09:11 99 Room Air 04/24/17 08:15 36.4 69 19 116/67 (83) 99 Room Air 04/24/17 08:00 Room Air 04/24/17 04:09 36.9 69 22 131/59 (83) 99 Room Air 04/24/17 04:03 100 Room Air 04/23/17 23:59 100 Room Air 04/23/17 23:40 36.9 73 22 134/63 (86) 100 Room Air 04/23/17 20:00 100 Room Air 04/23/17 19:41 37.1 78 20 125/63 (83) 100 Room Air 04/23/17 19:10 75 16 109/57 95 Room Air 04/23/17 18:10 60 16 120/60 100 Room Air 04/23/17 16:51 36.9 61 16 100/59 100 Room Air 04/23/17 15:36 62 18 106/62 100 Room Air 04/23/17 15:15 100 Room Air 04/23/17 14:55 59 04/23/17 14:46 36.9 54 16 113/59 97 Room Air 04/23/17 12:48 36.8 04/23/17 12:46 62 16 109/56 100 Room Air 04/23/17 11:49 74 24 120/60 100 Room Air 04/23/17 11:00 99 Room Air Physical Exam General Appearance: no apparent distress Eyes: EOMI ENT: hearing grossly normal Neck: trachea midline Respiratory/Chest: no respiratory distress, no accessory muscle use Extremities: normal range of motion Neurologic/Psychiatric: ophthalmic technologist II-XII nml as tested, alert, normal mood/affect Skin: normal color, warm/dry Laboratory Results Last 24 Hours Test 04/23/17 10:57 04/23/17 12:49 04/23/17 16:26 04/23/17 17:10 Influenza Type A Antigen Neg for Influ A Influenza Type B Antigen Neg for Influ B Urine Color YELLOW Urine Appearance CLEAR Urine pH 7.5 Urine Specific [place] 1.005 Urine Protein NEG Urine Glucose (UA) NEG Urine Ketones NEG Urine Occult Blood NEG Urine Nitrite NEG Urine Bilirubin NEG Urine Urobilinogen POS Urine Leukocyte Esterase SMALL Urine WBC (Auto) 1-5 /hpf Urine RBC (Auto) 0-4 /hpf Urine Hyaline Casts (Auto) 0 /lpf Urine Epithelial Cells (Auto) >30 /lpf Urine Bacteria (Auto) NEG Potassium Level mmol/L 2.7 mmol/L Troponin I < 0.015 ng/ml Test 04/24/17 02:54 04/24/17 08:50 White Blood Count 9.62 K/uL Red Blood Count 3.95 M/uL Hemoglobin 11.6 g/dL Hematocrit 34.7 % Mean Corpuscular Volume 87.8 fL Mean Corpuscular Hemoglobin 29.4 pg Mean Corpuscular Hemoglobin Concent 33.4 g/dl Platelet Count 222 K/uL Mean Platelet Volume 9.2 fL Neutrophils (%) (Auto) 75.3 % Lymphocytes (%) (Auto) 11.1 % Monocytes (%) (Auto) 11.3 % Eosinophils (%) (Auto) 1.6 % Basophils (%) (Auto) 0.2 % Neutrophils # (Auto) 7.24 K/uL Lymphocytes # (Auto) 1.07 K/uL Monocytes # (Auto) 1.09 K/uL Eosinophils # (Auto) 0.15 K/uL Basophils # (Auto) 0.02 K/uL RDW Standard Deviation 41.0 fL RDW Coefficient of Variation 12.6 % Immature Granulocyte % (Auto) 0.5 % Immature Granulocyte # (Auto) 0.05 K/uL Prothrombin Time 13.0 SECONDS Prothromb Time International Ratio 1.2 Activated Partial Thromboplast Time 34.3 SECONDS Partial Thromboplastin Ratio 1.3 Sodium Level 141 mmol/L 140 mmol/L Potassium Level 3.3 mmol/L 3.5 mmol/L Chloride Level 110 mmol/L 108 mmol/L Carbon Dioxide Level 22 mmol/L 23 mmol/L Anion Gap 9.0 mmol/L 9.0 mmol/L Blood Urea Nitrogen 5 mg/dl 4 mg/dl Creatinine 0.61 mg/dl 0.59 mg/dl Est Creatinine Clear Calc Drug Dose 109.2 ml/min 124.4 ml/min Estimated GFR () 119.1 120.4 Estimated GFR (Non- 102.8 103.9 BUN/Creatinine Ratio 8.4 7.5 Random Glucose 99 mg/dl 89 mg/dl Calcium Level 7.3 mg/dl 7.7 mg/dl Magnesium Level 2.3 mg/dl Total Bilirubin 0.6 mg/dl Direct Bilirubin 0.3 mg/dl Aspartate Amino Transf (AST/SGOT) 34 U/L Alanine Aminotransferase (ALT/SGPT) 28 U/L Alkaline Phosphatase 190 U/L Total Creatine Kinase 53 U/L Creatine Kinase MB 0.5 ng/ml Creatine Kinase MB Ratio 0.9 Troponin I < 0.015 ng/ml Total Protein 6.0 gm/dl Albumin 2.3 gm/dl Assessment and Plan cholecystitis - for OR today. medically acceptable (overall low risk) for planned procedure. continue zosyn for now hypokalemia/EKG changes - K improved. likely was poor PO intake/GI losses with gallbladder disease. replaced to 3.5 continue to follow. once PO intake improves, likely this will improve as well DVT proph - early ambulation dispo - post op anticipate she'll be safe for med surg since K no longer low
--- NOTE | 2017-04-24 11:55 | ECHOCARDIOGRAM REPORT ---
*NOTICE TO RECEIVING [facility] This information is strictly Confidential and protected under [place] law. [place] law prohibits you from making any further disclosure of this information unless further disclosure is expressly permitted by the written consent of the person to whom it pertains or is authorized by law. A general authorization for the release of medical or other information is not sufficient for this purpose. Hospital accepts no responsibility if the information is made available to any other person, INCLUDING THE PATIENT. Interpretation Summary * Name: LESLY MANRIQUEZ Study Date: 04/24/2017 06:28 AM BP: 131/59 mmHg * Patient Location: C.2E\S\E201\S\1 HR: 72 * : 1960 (M/d/yyyy) Gender: Female Height: 66 in * Age: 56 yrs Ethnicity: CA Weight: 165 lb * Ordering Physician: Chad Ramos * Referring Physician: Self, Referred * Performed By: Radha Mejia RCS * * Reason For Study: ABNORMAL EKG / ACUTE CHOLECYSTITIS * BSA: 1.8 m2 * -- Conclusions -- * Left ventricular systolic function is normal. * No regional wall motion abnormalities noted. * Ejection Fraction = 55-60%. * There is mild concentric left ventricular hypertrophy. * No significant valvular pathology. Procedure Details * A complete two-dimensional transthoracic echocardiogram was performed (2D, M-mode, Doppler and color flow Doppler). Left Ventricle * The left ventricle is normal in size. * There is mild concentric left ventricular hypertrophy. * Left ventricular systolic function is normal. * Ejection Fraction = 55-60%. * No regional wall motion abnormalities noted. Right Ventricle * The right ventricle is grossly normal size. * The right ventricular systolic function is normal as assessed by tricuspid annular plane systolic excursion (TAPSE) (normal >1.5 cm). Atria * The left atrial size is normal. * Right atrial size is normal. * No ASD detected; PFO is not assessed. Mitral Valve * The mitral valve is normal in structure and function. * There is no mitral valve stenosis. * Significant mitral regurgitation is absent. Tricuspid Valve * The tricuspid valve is not well visualized, but is grossly normal. * There is no tricuspid stenosis. * There is trace tricuspid regurgitation. Aortic Valve * The aortic valve is not well visualized. * The aortic valve opens well. * No hemodynamically significant valvular aortic stenosis. * There is no significant aortic regurgitation. Pulmonic Valve * The pulmonary valve is not well seen, but the Doppler examination is normal without significant regurgitation or stenosis. Great Vessels * The aortic root is normal size. * The pulmonary is not well visualized. Pericardium/Pleural * There is no pericardial effusion. Great Vessels * Normal inferior vena cava size and collapsability with sniff indicates a normal right atrial pressure of 3 mmHg MMode 2D Measurements and Calculations IVSd 1.2 cm IVSs 1.7 cm LVIDd 4.9 cm LVIDs 3.7 cm LVPWd 1.2 cm LVPWs 1.5 cm IVS/LVPW 0.95 FS 24.8 % EDV(Teich) 114.1 ml ESV(Teich) 58.3 ml EF(Teich) 48.9 % EDV(cubed) 119.4 ml ESV(cubed) 50.8 ml EF(cubed) 57.5 % % IVS thick 47.4 % % LVPW thick 23.0 % LV mass(C)d 226.7 grams LV mass(C)dI 123.0 grams/m\S\2 LV mass(C)s 234.9 grams LV mass(C)sI 127.5 grams/m\S\2 SV(Teich) 55.9 ml SI(Teich) 30.3 ml/m\S\2 SV(cubed) 68.6 ml SI(cubed) 37.2 ml/m\S\2 Ao root diam 3.1 cm Ao root area 7.7 cm\S\2 ACS 2.0 cm LA dimension 3.3 cm LA/Ao 1.1 LVOT diam 2.0 cm LVOT area 3.3 cm\S\2 Doppler Measurements and Calculations MV E max rhiannon 79.3 cm/sec MV A max rhiannon 57.7 cm/sec MV E/A 1.4 MV P1/2t max rhiannon 100.9 cm/sec MV P1/2t 57.4 msec MVA(P1/2t) 3.8 cm\S\2 MV dec slope 514.7 cm/sec\S\2 MV dec time 0.15 sec Ao V2 max 156.5 cm/sec Ao max PG 9.8 mmHg Ao max PG (full) 1.9 mmHg NEIL(V,A) 3.0 cm\S\2 NEIL(V,D) 3.0 cm\S\2 LV V1 max PG 7.9 mmHg LV V1 max 140.9 cm/sec
--- NOTE | 2017-04-24 12:05 | Medical Student: [facility] ---
Med Student History & Physical Date & Time of Service: Apr 24, 2017 at 11:52 Chief Complaint: Abnormal Ekg; Acute Cholecystitis Primary Care Physician: Mahad Diamond M.D. History of Present Illness Source: patient Iesha is a 56-year-old female who presents to med/surg from the ED for vomiting , high fever, and back pain. Patients states that she also has a cough and dysuria. These symptoms had been happening intermittently for the last week, and when Tylenol and Advil didn't lower her fever, she went to [facility] yesterday (04/23) morning. There she had a fever of 104 and was sent to the ED. She denies headache, chest pain, shortness of breath, abdominal pain, diarrhea, constipation, hematuria, urinary incontinence. Note: EKG done in ED was read as being abnormal. Will need followed. No PMH of gallstones, cholecystitis, pancreatitis, abdominal surgery, kidney stones. Denies use of tobacco and illicit drugs. Was evaluated and admitted by general surgery in the ED. No known allergies. Past Medical/Surgical History Medical Problems: (1) Abdominal pain Status: Acute (2) Acute cholecystitis Status: Acute (3) Fever Status: Acute Family History No pertinent family hx. Social History Smoking Status: Never Smoker Smokeless Tobacco Use: No Alcohol Use: none Drug Use: none Marital Status: Housing status: lives with family Occupational Status: employed Immunizations History of Influenza Vaccine: Unknown History of Tetanus Vaccine?: Unknown History of Pneumococcal: Unknown History of Hepatitis B Vaccine: Unknown Allergies Coded Allergies: No Known Allergies (Verified , 04/23/17) Medications Ocuvite Preservision (Ocuvite Preservision), 1 TAB PO DAILY Review of Systems Constitutional: + fever, + chills ENT: No nasal symptoms, No sore throat Respiratory: + cough, No wheezing, No shortness of breath Cardiovascular: No chest pain, No palpitations Abdomen: + nausea, + vomiting, No diarrhea, No constipation Musculoskeletal: No swelling, No calf pain Genitourinary - Female: + dysuria, No urinary incontinence, No hematuria Neurologic: No numbness/tingling Psychiatric: No depression symptoms, No anxiety Integumentary: No rash, No itch Physical Exam Vital Signs (24 Hours) Date Time Temp Pulse Resp B/P (MAP) Pulse Ox O2 Delivery O2 Flow Rate FiO2 10/16/17 09:11 99 Room Air 04/24/17 08:15 36.4 69 19 116/67 (83) 99 Room Air 04/24/17 08:00 Room Air 04/24/17 04:09 36.9 69 22 131/59 (83) 99 Room Air 04/24/17 04:03 100 Room Air 04/23/17 23:59 100 Room Air 04/23/17 23:40 36.9 73 22 134/63 (86) 100 Room Air 04/23/17 20:00 100 Room Air 04/23/17 19:41 37.1 78 20 125/63 (83) 100 Room Air 04/23/17 19:10 75 16 109/57 95 Room Air 04/23/17 18:10 60 16 120/60 100 Room Air 04/23/17 16:51 36.9 61 16 100/59 100 Room Air 04/23/17 15:36 62 18 106/62 100 Room Air 04/23/17 15:15 100 Room Air 04/23/17 14:55 59 04/23/17 14:46 36.9 54 16 113/59 97 Room Air 04/23/17 12:48 36.8 04/23/17 12:46 62 16 109/56 100 Room Air General Appearance: WD/WN, no apparent distress Head: normocephalic, atraumatic Eyes: normal inspection, PERRL, EOMI Neck: supple, no adenopathy Respiratory/Chest: chest non-tender, lungs clear, normal breath sounds Cardiovascular: regular rate, rhythm, no edema, no gallop, no murmur Abdomen/GI: soft, no pulsatile mass, + tenderness (epigastric), + abnormal bowel sounds (decreased) Back: no CVA tenderness Extremities/Musculoskelatal: no calf tenderness, no pedal edema Neurologic/Psych: stakeholder manager II-XII nml as tested Skin: normal color, warm/dry Diagnostics Laboratory Results Results Past 24 Hours Test 04/23/17 12:49 04/23/17 16:26 04/23/17 17:10 04/24/17 02:54 Range/Units Urine Color YELLOW Urine Appearance CLEAR CLEAR Urine pH 7.5 4.5-7.5 Urine Specific [place] 1.005 1.000-1.030 Urine Protein NEG NEG Urine Glucose (UA) NEG NEG Urine Ketones NEG NEG Urine Occult Blood NEG NEG Urine Nitrite NEG NEG Urine Bilirubin NEG NEG Urine Urobilinogen POS NEG Urine Leukocyte Esterase SMALL NEG Urine WBC (Auto) 1-5 0-5 /hpf Urine RBC (Auto) 0-4 0-4 /hpf Urine Hyaline Casts (Auto) 0 0-5 /lpf Urine Epithelial Cells (Auto) >30 0-5 /lpf Urine Bacteria (Auto) NEG NEG Potassium Level 2.7 3.3 3.5-5.1 mmol/L Troponin I < 0.015 < 0.015 0-0.045 ng/ml White Blood Count 9.62 4.8-10.8 K/uL Red Blood Count 3.95 4.2-5.4 M/uL Hemoglobin 11.6 12.0-16.0 g/dL Hematocrit 34.7 37-47 % Mean Corpuscular Volume 87.8 80-100 fL Mean Corpuscular Hemoglobin 29.4 25-34 pg Mean Corpuscular Hemoglobin Concent 33.4 32-36 g/dl Platelet Count 222 130-400 K/uL Mean Platelet Volume 9.2 7.4-10.4 fL Neutrophils (%) (Auto) 75.3 % Lymphocytes (%) (Auto) 11.1 % Monocytes (%) (Auto) 11.3 % Eosinophils (%) (Auto) 1.6 % Basophils (%) (Auto) 0.2 % Neutrophils # (Auto) 7.24 1.4-6.5 K/uL Lymphocytes # (Auto) 1.07 1.2-3.4 K/uL Monocytes # (Auto) 1.09 0.11-0.59 K/uL Eosinophils # (Auto) 0.15 0-0.5 K/uL Basophils # (Auto) 0.02 0-0.2 K/uL RDW Standard Deviation 41.0 36.4-46.3 fL RDW Coefficient of Variation 12.6 11.5-14.5 % Immature Granulocyte % (Auto) 0.5 % Immature Granulocyte # (Auto) 0.05 0.00-0.02 K/uL Prothrombin Time 13.0 9.0-12.0 SECONDS Prothromb Time International Ratio 1.2 0.9-1.1 Activated Partial Thromboplast Time 34.3 21.0-31.0 SECONDS Partial Thromboplastin Ratio 1.3 Sodium Level 141 136-145 mmol/L Chloride Level 110 98-107 mmol/L Carbon Dioxide Level 22 21-32 mmol/L Anion Gap 9.0 3-11 mmol/L Blood Urea Nitrogen 5 7-18 mg/dl Creatinine 0.61 0.60-1.20 mg/dl Est Creatinine Clear Calc Drug Dose 109.2 ml/min Estimated GFR () 119.1 Estimated GFR (Non- 102.8 BUN/Creatinine Ratio 8.4 10-20 Random Glucose 99 70-99 mg/dl Calcium Level 7.3 8.5-10.1 mg/dl Magnesium Level 2.3 1.8-2.4 mg/dl Total Bilirubin 0.6 0.2-1 mg/dl Direct Bilirubin 0.3 0-0.2 mg/dl Aspartate Amino Transf (AST/SGOT) 34 15-37 U/L Alanine Aminotransferase (ALT/SGPT) 28 12-78 U/L Alkaline Phosphatase 190 45-117 U/L Total Creatine Kinase 53 26-192 U/L Creatine Kinase MB 0.5 0.5-3.6 ng/ml Creatine Kinase MB Ratio 0.9 0-3.0 Total Protein 6.0 6.4-8.2 gm/dl Albumin 2.3 3.4-5.0 gm/dl Test 04/24/17 08:50 Range/Units Sodium Level 140 136-145 mmol/L Potassium Level 3.5 3.5-5.1 mmol/L Chloride Level 108 98-107 mmol/L Carbon Dioxide Level 23 21-32 mmol/L Anion Gap 9.0 3-11 mmol/L Blood Urea Nitrogen 4 7-18 mg/dl Creatinine 0.59 0.60-1.20 mg/dl Est Creatinine Clear Calc Drug Dose 124.4 ml/min Estimated GFR () 120.4 Estimated GFR (Non- 103.9 BUN/Creatinine Ratio 7.5 10-20 Random Glucose 89 70-99 mg/dl Calcium Level 7.7 8.5-10.1 mg/dl Microbiology Results 04/23/17 Urine Culture - Final, Complete MORE THAN THREE TYPES OF ORGANISMS NV... Impression Assessment and Plan This is a 56-year-old female who presents with vomiting, high fever, dysuria, and coughing. She has no pertinent medical history and is otherwise healthy. Differential diagnosis includes acute cholecystitis, pancreatitis, cholelithiasis, small bowel obstruction, kidney stone, pyelonephritis, acute hepatitis, appendicitis. Primary diagnosis: acute cholecystitis -Admit to med/surg by general surgery -Continue Zosyn started in ED -Control pain with hydrocodone -Control nausea with Zofran -Check potassium, alk phos, and LFTs prior to surgery (had low K on admission, has resolved) -Get repeat EKG -Proceed with laparoscopic cholecystectomy -Post-op DVT prophylaxis with immediate ambulation and/or SCDs. Abnormal EKG -Repeat study following surgery -Get echocardiogram - showed mild LVH -Consider consulting cardiology Level of Care Med/Surg Advanced Directives Existing Advance Directive: No Existing Living Will: No Existing Power of Director Client Services: No
--- NOTE | 2017-04-24 12:27 | [facility] Operative Report ---
Operative Report Operative Date Apr 24, 2017. Pre-Operative Diagnosis severe acute cholecystitis Post-Operative Diagnosis severe acute cholecystitis , gangrenous, purulent bile Procedure(s) Performed Laparoscopic cholecystectomy, drain Surgeon Dr. Barney Randolph Repairer Shoe Sticks Surgeon(s) Lamonte Pino PA-C Estimated Blood Loss 50ml Findings severe acute and chronic disease w/ purulent purulent Specimens A: Gallbladder and contents Drains #[id number] ROBINSON Anesthesia gen Complication(s) None Disposition Recovery Room / PACU I attest to the content of the Intraoperative Record and any orders documented therein. Any exceptions are noted below.
[2017-04-24] MEDS: FENTANYL CITRATE INJ 50 MCG/1 ML 2 ML VIAL IV PRN ×4 (12:32→12:47)
[2017-04-24] MEDS: HYDROmorphone INJ 1 MG/ML SYR IV PRN ×7 (12:32→13:02)
--- NOTE | 2017-04-24 12:49 | OPERATIVE REPORT ---
DATE OF OPERATION: 04/24/2017 NAME OF OPERATION: Laparoscopic cholecystectomy with drainage. PREOPERATIVE DIAGNOSIS: Acute cholecystitis. POSTOPERATIVE DIAGNOSIS: Same with severe chronic cholecystitis and gangrenous changes. STAFF SURGEON: Dr. Randolph. TIMBER SKIDDER: Gregorio Pino PA-C. PROCEDURE: The patient was brought in the operating room and placed on the operating table in supine position. Pneumatic stockings and orogastric tube were placed. Her abdomen was prepped and draped in usual fashion. 0.5% plain Marcaine was used to anesthetize the skin above the umbilicus. Dissection was carried down, placing a Veress needle, producing pneumoperitoneum. An 11 mm port was placed at this level. Under visualization, three 5 mm ports were placed, 1 cephalad and 2 laterally. The patient's omentum was adherent to the gallbladder and liver. With some difficulty, this was taken down, it was indicating severe chronic disease. Gallbladder was extremely thickened and inflamed, indicating gangrenous changes. It was aspirated of bile which was purulent. With some difficulty, the gallbladder was retracted. Dissection carried out at the herrera hepatis, identifying the cystic artery and cystic duct. These were clipped and transected. Then, the gallbladder dissected away from the liver bed. There was severe dense scar tissue in the posterior wall, indicating chronic inflammation. The gallbladder was placed in an Endobag. After appropriate hemostasis and irrigation, a #19 round Giovanny-Franks drain was placed through the lateral 5 mm port site into the subhepatic space, secured to the skin using 3-0 nylon suture. Using a 5 mm scope, the Endobag with gallbladder was removed through the umbilical site. I did have to enlarge the skin incision and the fascial incision to remove the very large gallbladder. Fascia was closed using interrupted 0 PDS suture, skin reapproximated using 5-0 Prolene suture and dressings applied. The patient transferred to recovery room in stable condition. I attest to the content of the Intraoperative Record and any orders documented therein. Any exception s are noted below.
--- NOTE | 2017-04-24 13:18 | Anesthesiology Progress Note ---
Anesthesia Post Op Note Date & Time Apr 24, 2017 at 13:18 Vital Signs Pain Intensity: 5 Vital Signs Past 12 Hours Date Time Temp Pulse Resp B/P (MAP) Pulse Ox O2 Delivery O2 Flow Rate FiO2 04/24/17 13:15 36.4 73 16 132/64 94 Nasal Cannula 3 04/24/17 13:05 69 16 138/57 94 Nasal Cannula 3 04/24/17 12:55 71 16 143/63 93 Nasal Cannula 3 04/24/17 12:45 71 16 155/74 92 Nasal Cannula 3 04/24/17 12:35 68 16 143/59 97 Oxymask 10 04/24/17 12:29 37.0 69 16 131/54 97 Oxymask 10 04/24/17 09:11 99 Room Air 04/24/17 08:15 36.4 69 19 116/67 (83) 99 Room Air 04/24/17 08:00 Room Air 04/24/17 04:09 36.9 69 22 131/59 (83) 99 Room Air 04/24/17 04:03 100 Room Air Notes Mental Status: alert / awake / arousable, participated in evaluation Pt Amnestic to Procedure: Yes Nausea / Vomiting: adequately controlled Pain: adequately controlled Airway Patency, RR, SpO2: stable & adequate BP & HR: stable & adequate Hydration State: stable & adequate Anesthetic Complications: no major complications apparent
[2017-04-24 15:50] LABS: CALCIUM 7.5 mg/dl (8.5-10.1); CREATININE 0.45 mg/dl (0.60-1.20); POTASSIUM 3.9 mmol/L (3.5-5.1)
[2017-04-24 15:55] LABS: ALB/GLOB RATIO 0.6 (0.9-2); PHOSPHORUS 2.4 mg/dl (2.5-4.9)
[2017-04-24] MEDS: MoRPHine SULFATE 4 MG/ML 1 ML CARP\\VIAL IV PRN ×2 (17:18→22:14)
[2017-04-25] MEDS: PIPERACILL/TAZOBAC IV 3.375 GM in DEXTROSE 5% 100ML 100 ML IV SCH ×3 (01:28→18:37)
[2017-04-25] MEDS: MoRPHine SULFATE 4 MG/ML 1 ML CARP\\VIAL IV PRN ×2 (01:28→05:32)
[2017-04-25 03:48] VITALS: BP 119/69; PULSE 64; TEMP 36.8; O2SAT 94
[2017-04-25] MEDS: NSS + 20MEQ KCL 1000ML 1,000 ML IV SCH ×4 (04:10→23:46)
[2017-04-25] MEDS ORDERED: MoRPHine SULFATE 2 MG/ML CARP IV PRN (05:45)
[2017-04-25] MEDS ORDERED: MoRPHine SULFATE 4 MG/ML 1 ML CARP\\VIAL IV PRN (05:45)
[2017-04-25] MEDS ORDERED: HYDROCODONE/ACETAMOPHEN 5/325MG TAB PO PRN (05:45)
[2017-04-25] MEDS: FAMOTIDINE IV INJ 20 MG in DEXTROSE 5% 100ML 100 ML IV SCH (06:12)
--- NOTE | 2017-04-25 06:30 | Surgery Progress Note ---
Surgery Progress Note Date of Service Apr 25, 2017. Subjective awake , alert urine output good Objective Vital Signs: Date Time Temp Pulse Resp B/P (MAP) Pulse Ox O2 Delivery O2 Flow Rate FiO2 04/25/17 03:48 36.8 64 16 119/69 (86) 94 Room Air 04/24/17 23:40 Room Air 04/24/17 23:05 36.9 65 16 112/66 (81) 93 Room Air 04/24/17 19:15 36.6 64 18 127/65 (85) 95 Room Air 04/24/17 17:13 36.6 79 18 135/83 (100) 97 Nasal Cannula 2.0 04/24/17 16:50 Nasal Cannula 2.0 04/24/17 16:18 36.8 66 16 93 2.0 04/24/17 16:15 36.8 72 18 135/70 (91) 96 Nasal Cannula 2.0 04/24/17 16:00 Room Air 04/24/17 15:21 93 Nasal Cannula 2.0 04/24/17 15:14 36.8 66 16 131/69 (89) 93 Nasal Cannula 2.0 04/24/17 14:57 94 Nasal Cannula 2.0 04/24/17 14:25 36.6 68 16 143/67 (92) 94 Nasal Cannula 2.0 04/24/17 14:05 Room Air 04/24/17 13:45 36.3 72 18 136/59 (84) 93 2.0 04/24/17 13:15 36.4 73 16 132/64 94 Nasal Cannula 3 04/24/17 13:05 69 16 138/57 94 Nasal Cannula 3 04/24/17 12:55 71 16 143/63 93 Nasal Cannula 3 04/24/17 12:45 71 16 155/74 92 Nasal Cannula 3 04/24/17 12:35 68 16 143/59 97 Oxymask 10 04/24/17 12:29 37.0 69 16 131/54 97 Oxymask 10 04/24/17 09:11 99 Room Air 04/24/17 08:15 36.4 69 19 116/67 (83) 99 Room Air 04/24/17 08:00 Room Air General Appearance: no apparent distress Respiratory/Chest: no respiratory distress Abdomen: soft Incision(s): drainage (expected- serosang) Laboratory Results: Results Past 24 Hours Test 10/16/17 08:50 04/24/17 14:17 04/25/17 04:44 Range/Units Sodium Level 140 140 136-145 mmol/L Potassium Level 3.5 3.9 3.5-5.1 mmol/L Chloride Level 108 109 98-107 mmol/L Carbon Dioxide Level 23 20 21-32 mmol/L Anion Gap 9.0 11.0 3-11 mmol/L Blood Urea Nitrogen 4 5 7-18 mg/dl Creatinine 0.59 0.45 0.60-1.20 mg/dl Est Creatinine Clear Calc Drug Dose 124.4 163.2 ml/min Estimated GFR () 120.4 131.7 Estimated GFR (Non- 103.9 113.6 BUN/Creatinine Ratio 7.5 12.0 10-20 Random Glucose 89 103 70-99 mg/dl Calcium Level 7.7 7.5 8.5-10.1 mg/dl Phosphorus Level 2.4 2.5-4.9 mg/dl Total Bilirubin 0.6 0.2-1 mg/dl Direct Bilirubin 0.3 0-0.2 mg/dl Aspartate Amino Transf (AST/SGOT) 41 15-37 U/L Alanine Aminotransferase (ALT/SGPT) 27 12-78 U/L Alkaline Phosphatase 190 45-117 U/L Total Protein 6.0 6.4-8.2 gm/dl Albumin 2.3 3.4-5.0 gm/dl Globulin 3.7 2.5-4.0 gm/dl Albumin/Globulin Ratio 0.6 0.9-2 Assessment & Plan 04/25/17- s/p lap benjamin- very difficult operation- severe acute and chronic disease with purulent bile- doing well adv diet, cont IV atbx, home with drain 2-3 days 04/24/17- check am labs/ K+, check with medical team- plan for lap benjamin today if possible- suspect infected gallbladder 04/24/17- check am labs/ K+, check with medical team- plan for lap benjamin today if possible- suspect infected gallbladder
[2017-04-25 06:44] LABS: BASO % 0.2 %; BASO ABS # 0.02 K/uL (0-0.2); COMPLETE YES; EOS % 0.9 %; HEMATOCRIT 33.3 % (37-47); IG% 1.1 %; LYMPH % 12.7 %; LYMPH ABS # 1.32 K/uL (1.2-3.4); MEAN CELL VOLUME 90.2 fL (80-100); MEAN CORPUSCULAR HEMOGLOBIN 29.3 pg (25-34); MEAN CORPUSCULAR HGB CONC 32.4 g/dl (32-36); MEAN PLATELET VOLUME 9.2 fL (7.4-10.4); MONO % 10.8 %; NEUT % 74.3 %; PLATELET COUNT 278 K/uL (130-400); RED BLOOD COUNT 3.69 M/uL (4.2-5.4); WHITE BLOOD COUNT 10.41 K/uL (4.8-10.8)
[2017-04-25 07:18] VITALS: BP 121/66; PULSE 71; TEMP 36.8; O2SAT 92
[2017-04-25 07:52] LABS: ALB/GLOB RATIO 0.6 (0.9-2); BUN/CREATININE RATIO 7.1 (10-20); CALCIUM 7.8 mg/dl (8.5-10.1); CREATININE 0.52 mg/dl (0.60-1.20); MAGNESIUM 2.2 mg/dl (1.8-2.4); POTASSIUM 3.7 mmol/L (3.5-5.1)
[2017-04-25] MEDS: HYDROCODONE/ACETAMOPHEN 5/325MG TAB PO PRN ×5 (08:44→23:47)
--- NOTE | 2017-04-25 09:53 | Anesthesiology Progress Note ---
Anesthesia Post Op Note Date & Time Apr 25, 2017 at 09:53 Vital Signs Vital Signs Past 12 Hours Date Time Temp Pulse Resp B/P (MAP) Pulse Ox O2 Delivery O2 Flow Rate FiO2 04/25/17 07:18 36.8 71 18 121/66 (84) 92 Room Air 04/25/17 03:48 36.8 64 16 119/69 (86) 94 Room Air 04/24/17 23:40 Room Air 04/24/17 23:05 36.9 65 16 112/66 (81) 93 Room Air Notes Mental Status: alert / awake / arousable, participated in evaluation Pt Amnestic to Procedure: Yes Nausea / Vomiting: adequately controlled Pain: adequately controlled Airway Patency, RR, SpO2: stable & adequate BP & HR: stable & adequate Hydration State: stable & adequate Anesthetic Complications: no major complications apparent
--- NOTE | 2017-04-25 10:25 | Medical Student: [facility] ---
Med Student Progress Note Date of Service Apr 25, 2017. Subjective Pt evaluation today including: conversation w/ patient Pain: 5/10 Voiding: no voiding problems Iesha is going well this morning. She says that she still has pain, about 5/10, but that she is able to keep ahead of it with pain medication for the most part. She has been ambulating well and denies nausea/vomiting/. Said that she tolerated solid foods for breakfast and has an appetite. She and her had questions about how long the surgical drain would be in place and how much movement/ambulation she would be able to tolerate. Also wondered how long she would have this much pain. I deferred to Dr. Randolph, her surgeon, for the answers to these questions but reiterated that gentle movement and ambulation is encouraged as she is able to tolerate it in the hospital. Review of Systems Constitutional: No fever, No chills Respiratory: No cough, No shortness of breath Cardiac: No chest pain, No edema Abdomen: + pain (surgical site - RUQ/epigastric), No nausea, No vomiting Musculoskeletal: No swelling Neurologic: No numbness/tingling All Other Systems: Reviewed and Negative Objective Vital Signs Date Time Temp Pulse Resp B/P (MAP) Pulse Ox O2 Delivery O2 Flow Rate FiO2 04/25/17 07:18 36.8 71 18 121/66 (84) 92 Room Air 04/25/17 03:48 36.8 64 16 119/69 (86) 94 Room Air 04/24/17 23:40 Room Air 04/24/17 23:05 36.9 65 16 112/66 (81) 93 Room Air 04/24/17 19:15 36.6 64 18 127/65 (85) 95 Room Air 04/24/17 17:13 36.6 79 18 135/83 (100) 97 Nasal Cannula 2.0 04/24/17 16:50 Nasal Cannula 2.0 04/24/17 16:18 36.8 66 16 93 2.0 04/24/17 16:15 36.8 72 18 135/70 (91) 96 Nasal Cannula 2.0 04/24/17 16:00 Room Air 04/24/17 15:21 93 Nasal Cannula 2.0 04/24/17 15:14 36.8 66 16 131/69 (89) 93 Nasal Cannula 2.0 04/24/17 14:57 94 Nasal Cannula 2.0 04/24/17 14:25 36.6 68 16 143/67 (92) 94 Nasal Cannula 2.0 04/24/17 14:05 Room Air 04/24/17 13:45 36.3 72 18 136/59 (84) 93 2.0 04/24/17 13:15 36.4 73 16 132/64 94 Nasal Cannula 3 04/24/17 13:05 69 16 138/57 94 Nasal Cannula 3 04/24/17 12:55 71 16 143/63 93 Nasal Cannula 3 04/24/17 12:45 71 16 155/74 92 Nasal Cannula 3 04/24/17 12:35 68 16 143/59 97 Oxymask 10 04/24/17 12:29 37.0 69 16 131/54 97 Oxymask 10 Physical Exam Neck: supple, no adenopathy Respiratory/Chest: chest non-tender, lungs clear, normal breath sounds Cardiovascular: regular rate, rhythm, no gallop, no murmur Abdomen: normal bowel sounds, soft, + tenderness (RUQ/epigastric - incision sites) Extremities: normal inspection, no pedal edema, no calf tenderness Neurologic/Psychiatric: cork insulator helper II-XII nml as tested Skin: warm/dry Laboratory Results Last 24 Hours Test 04/24/17 14:17 04/25/17 06:31 Sodium Level 140 mmol/L 141 mmol/L Potassium Level 3.9 mmol/L 3.7 mmol/L Chloride Level 109 mmol/L 110 mmol/L Carbon Dioxide Level 20 mmol/L 23 mmol/L Anion Gap 11.0 mmol/L 8.0 mmol/L Blood Urea Nitrogen 5 mg/dl 4 mg/dl Creatinine 0.45 mg/dl 0.52 mg/dl Est Creatinine Clear Calc Drug Dose 163.2 ml/min 141.2 ml/min Estimated GFR () 131.7 125.5 Estimated GFR (Non- 113.6 108.3 BUN/Creatinine Ratio 12.0 7.1 Random Glucose 103 mg/dl 121 mg/dl Calcium Level 7.5 mg/dl 7.8 mg/dl Phosphorus Level 2.4 mg/dl Total Bilirubin 0.6 mg/dl 0.3 mg/dl Direct Bilirubin 0.3 mg/dl 0.1 mg/dl Aspartate Amino Transf (AST/SGOT) 41 U/L 18 U/L Alanine Aminotransferase (ALT/SGPT) 27 U/L 20 U/L Alkaline Phosphatase 190 U/L 172 U/L Total Protein 6.0 gm/dl 6.0 gm/dl Albumin 2.3 gm/dl 2.3 gm/dl Globulin 3.7 gm/dl 3.7 gm/dl Albumin/Globulin Ratio 0.6 0.6 White Blood Count 10.41 K/uL Red Blood Count 3.69 M/uL Hemoglobin 10.8 g/dL Hematocrit 33.3 % Mean Corpuscular Volume 90.2 fL Mean Corpuscular Hemoglobin 29.3 pg Mean Corpuscular Hemoglobin Concent 32.4 g/dl Platelet Count 278 K/uL Mean Platelet Volume 9.2 fL Neutrophils (%) (Auto) 74.3 % Lymphocytes (%) (Auto) 12.7 % Monocytes (%) (Auto) 10.8 % Eosinophils (%) (Auto) 0.9 % Basophils (%) (Auto) 0.2 % Neutrophils # (Auto) 7.75 K/uL Lymphocytes # (Auto) 1.32 K/uL Monocytes # (Auto) 1.12 K/uL Eosinophils # (Auto) 0.09 K/uL Basophils # (Auto) 0.02 K/uL RDW Standard Deviation 43.2 fL RDW Coefficient of Variation 13.0 % Immature Granulocyte % (Auto) 1.1 % Immature Granulocyte # (Auto) 0.11 K/uL Magnesium Level 2.2 mg/dl Medications Medications (Trade) Dose Ordered Sig/Estela Route Start Time Stop Time Status Last Admin Dose Admin Morphine Sulfate (MoRPHine SULFATE INJ) 4 mg Q1H PRN IV 04/24/17 15:45 04/25/17 05:48 DC 04/25/17 05:32 4 MG Acetaminophen/ Hydrocodone Bitart ([place] 5/325 Tab) 1 tab Q4 PRN PO 04/25/17 05:45 05/09/17 05:44 04/25/17 09:48 1 TAB Assessment and Plan Problems Abdominal pain Acute cholecystitis Fever Assessment and Plan: Primary diagnosis: acute cholecystitis -Post-cholecystectomy day 1 -Admit to med/surg by general surgery -Continue IV Zosyn started in ED -Control pain with oral hydrocodone -Control nausea with Zofran -Get repeat EKG -Post-op DVT prophylaxis with immediate ambulation as tolerated Abnormal EKG -Repeat study showed no change from yesterday (04/24) -Get echocardiogram - showed mild LVH -Consider consulting cardiology Continued [facility] stay due to: multiple IV medications needed Discharge planning: home
[2017-04-25 15:18] VITALS: BP 111/72; PULSE 74; TEMP 36.7; O2SAT 91
--- NOTE | 2017-04-25 17:37 | Progress Note ---
Subjective Date of Service: Apr 25, 2017. Subjective Pt evaluation today including: conversation w/ patient, conversation w/ family , physical exam, chart review, lab review feeling good no complaints belly feeling better eating reasonably - notes that regular food just wasnt' appetizing - no pain or nausea just didn't sound good - but jello sitting well later notes she was briefly breathign shallow no sob no chest pain and resolved on its own Problem List Medical Problems: (1) Abdominal pain Status: Acute (2) Acute cholecystitis Status: Acute (3) Fever Status: Acute Review of Systems all other ROS otherwise negative except for as above Objective Vital Signs Date Time Temp Pulse Resp B/P (MAP) Pulse Ox O2 Delivery O2 Flow Rate FiO2 04/25/17 15:18 36.7 74 17 111/72 (85) 91 Room Air 04/25/17 07:45 Room Air 04/25/17 07:18 36.8 71 18 121/66 (84) 92 Room Air 04/25/17 03:48 36.8 64 16 119/69 (86) 94 Room Air 04/24/17 23:40 Room Air 04/24/17 23:05 36.9 65 16 112/66 (81) 93 Room Air 04/24/17 19:15 36.6 64 18 127/65 (85) 95 Room Air Physical Exam General Appearance: no apparent distress Eyes: EOMI ENT: hearing grossly normal Neck: trachea midline Respiratory/Chest: lungs clear, normal breath sounds (quiet bibasilar), no respiratory distress, no accessory muscle use Neurologic/Psychiatric: hr leader II-XII nml as tested, alert, normal mood/affect Skin: normal color, warm/dry Laboratory Results Last 24 Hours Test 04/25/17 06:31 White Blood Count 10.41 K/uL Red Blood Count 3.69 M/uL Hemoglobin 10.8 g/dL Hematocrit 33.3 % Mean Corpuscular Volume 90.2 fL Mean Corpuscular Hemoglobin 29.3 pg Mean Corpuscular Hemoglobin Concent 32.4 g/dl Platelet Count 278 K/uL Mean Platelet Volume 9.2 fL Neutrophils (%) (Auto) 74.3 % Lymphocytes (%) (Auto) 12.7 % Monocytes (%) (Auto) 10.8 % Eosinophils (%) (Auto) 0.9 % Basophils (%) (Auto) 0.2 % Neutrophils # (Auto) 7.75 K/uL Lymphocytes # (Auto) 1.32 K/uL Monocytes # (Auto) 1.12 K/uL Eosinophils # (Auto) 0.09 K/uL Basophils # (Auto) 0.02 K/uL RDW Standard Deviation 43.2 fL RDW Coefficient of Variation 13.0 % Immature Granulocyte % (Auto) 1.1 % Immature Granulocyte # (Auto) 0.11 K/uL Sodium Level 141 mmol/L Potassium Level 3.7 mmol/L Chloride Level 110 mmol/L Carbon Dioxide Level 23 mmol/L Anion Gap 8.0 mmol/L Blood Urea Nitrogen 4 mg/dl Creatinine 0.52 mg/dl Est Creatinine Clear Calc Drug Dose 141.2 ml/min Estimated GFR () 125.5 Estimated GFR (Non- 108.3 BUN/Creatinine Ratio 7.1 Random Glucose 121 mg/dl Calcium Level 7.8 mg/dl Magnesium Level 2.2 mg/dl Total Bilirubin 0.3 mg/dl Direct Bilirubin 0.1 mg/dl Aspartate Amino Transf (AST/SGOT) 18 U/L Alanine Aminotransferase (ALT/SGPT) 20 U/L Alkaline Phosphatase 172 U/L Total Protein 6.0 gm/dl Albumin 2.3 gm/dl Globulin 3.7 gm/dl Albumin/Globulin Ratio 0.6 Assessment and Plan cholecystitis post choley, continue IV abx per surgery hypokalemia/EKG changes - K improved. likely was poor PO intake/GI losses with gallbladder disease. replaced and EKG resolved tachypnea - quiet breath sounds and poor entry on incentive spirometry - likely relates to atelectasis - encouraged IS use DVT proph - early ambulation Continued [facility] stay due to: multiple IV medications needed Discharge planning: home
[2017-04-25] MEDS: FAMOTIDINE 20 MG TAB PO SCH (19:00)
[2017-04-25 22:49] VITALS: BP 127/71; PULSE 74; TEMP 36.9; O2SAT 91
[2017-04-26] MEDS: PIPERACILL/TAZOBAC IV 3.375 GM in DEXTROSE 5% 100ML 100 ML IV SCH ×2 (01:40→10:15)
[2017-04-26] MEDS: HYDROCODONE/ACETAMOPHEN 5/325MG TAB PO PRN ×4 (05:57→19:41)
[2017-04-26] MEDS: NSS + 20MEQ KCL 1000ML 1,000 ML IV SCH (05:57)
[2017-04-26] MEDS: FAMOTIDINE 20 MG TAB PO SCH ×2 (05:58→16:16)
[2017-04-26 06:15] LABS: BASO % 0.2 %; BASO ABS # 0.02 K/uL (0-0.2); COMPLETE YES; HEMATOCRIT 34.6 % (37-47); IG% 1.5 %; LYMPH % 14.1 %; LYMPH ABS # 1.22 K/uL (1.2-3.4); MEAN CELL VOLUME 91.1 fL (80-100); MEAN CORPUSCULAR HEMOGLOBIN 29.2 pg (25-34); MEAN CORPUSCULAR HGB CONC 32.1 g/dl (32-36); MEAN PLATELET VOLUME 9.2 fL (7.4-10.4); MONO % 6.8 %; NEUT % 75.4 %; PLATELET COUNT 315 K/uL (130-400); WHITE BLOOD COUNT 8.65 K/uL (4.8-10.8)
[2017-04-26 06:45] LABS: BUN/CREATININE RATIO 5.6 (10-20); CALCIUM 7.8 mg/dl (8.5-10.1); CREATININE 0.5 mg/dl (0.60-1.20); POTASSIUM 3.6 mmol/L (3.5-5.1)
[2017-04-26 07:23] VITALS: BP 145/86; PULSE 77; TEMP 36.8; O2SAT 94
--- NOTE | 2017-04-26 08:58 | Medical Student: [facility] ---
Med Student Progress Note Date of Service Apr 26, 2017. Subjective Pt evaluation today including: conversation w/ patient Pain: 4/10 Voiding: no voiding problems Iesha is doing well and is in good spirits this morning. She is tolerating the IV Zosyn well, and she denies nausea/vomiting/diarrhea. She still has 4/10 pain around her incision site but it is being managed well by oral hydrocodone. She states that she doesn't have much of an appetite yet but that she is able to eat whatever sounds good to her without any N/V or pain. She is ambulating as tolerated. Review of Systems Constitutional: No fever, No chills Respiratory: No cough, No sputum, No shortness of breath Cardiac: No chest pain, No orthopnea Abdomen: + pain, No nausea, No vomiting, No diarrhea Neurologic: No weakness, No numbness/tingling All Other Systems: Reviewed and Negative Objective Vital Signs Date Time Temp Pulse Resp B/P (MAP) Pulse Ox O2 Delivery O2 Flow Rate FiO2 04/26/17 07:23 36.8 77 18 145/86 (105) 94 Room Air 04/25/17 23:45 Room Air 04/25/17 22:49 36.9 74 16 127/71 (89) 91 Room Air 04/25/17 16:30 Room Air 04/25/17 15:18 36.7 74 17 111/72 (85) 91 Room Air Physical Exam General Appearance: WD/WN, no apparent distress Neck: supple, no adenopathy Respiratory/Chest: chest non-tender, lungs clear, normal breath sounds Cardiovascular: regular rate, rhythm, no gallop, no murmur Abdomen: normal bowel sounds, soft, + tenderness (Surgical site) Extremities: normal range of motion, no pedal edema, no calf tenderness Neurologic/Psychiatric: screen roller II-XII nml as tested Skin: normal color (Incisions healing well), warm/dry Laboratory Results Last 24 Hours Test 04/26/17 05:41 White Blood Count 8.65 K/uL Red Blood Count 3.80 M/uL Hemoglobin 11.1 g/dL Hematocrit 34.6 % Mean Corpuscular Volume 91.1 fL Mean Corpuscular Hemoglobin 29.2 pg Mean Corpuscular Hemoglobin Concent 32.1 g/dl Platelet Count 315 K/uL Mean Platelet Volume 9.2 fL Neutrophils (%) (Auto) 75.4 % Lymphocytes (%) (Auto) 14.1 % Monocytes (%) (Auto) 6.8 % Eosinophils (%) (Auto) 2.0 % Basophils (%) (Auto) 0.2 % Neutrophils # (Auto) 6.52 K/uL Lymphocytes # (Auto) 1.22 K/uL Monocytes # (Auto) 0.59 K/uL Eosinophils # (Auto) 0.17 K/uL Basophils # (Auto) 0.02 K/uL RDW Standard Deviation 43.9 fL RDW Coefficient of Variation 13.2 % Immature Granulocyte % (Auto) 1.5 % Immature Granulocyte # (Auto) 0.13 K/uL Sodium Level 142 mmol/L Potassium Level 3.6 mmol/L Chloride Level 110 mmol/L Carbon Dioxide Level 24 mmol/L Anion Gap 8.0 mmol/L Blood Urea Nitrogen 3 mg/dl Creatinine 0.50 mg/dl Est Creatinine Clear Calc Drug Dose 146.8 ml/min Estimated GFR () 127.2 Estimated GFR (Non- 109.7 BUN/Creatinine Ratio 5.6 Random Glucose 83 mg/dl Calcium Level 7.8 mg/dl Assessment and Plan Assessment and Plan: Primary diagnosis: acute cholecystitis -Post-cholecystectomy day 2 -Admit to med/surg by general surgery -Continue IV Zosyn started in ED -Control pain with oral hydrocodone -Control nausea with Zofran -Get repeat EKG -Post-op DVT prophylaxis with immediate ambulation as tolerated Abnormal EKG -Repeat study showed no change from yesterday (04/24) -Get echocardiogram - showed mild LVH -Consider consulting cardiology Ultimately the hope is to get her home tomorrow, per Dr. Randolph. The only thing keeping her here, now that the hypokalemia and subsequent EKG changes have resolved, is the need for IV Zosyn. Continued [facility] stay due to: multiple IV medications needed Discharge planning: home
--- NOTE | 2017-04-26 08:58 | Surgery Progress Note ---
Surgery Progress Note Date of Service Apr 26, 2017. Subjective feeling better , but "worn out " good urine outpt- tolerating po Objective Vital Signs: Date Time Temp Pulse Resp B/P (MAP) Pulse Ox O2 Delivery O2 Flow Rate FiO2 04/26/17 07:23 36.8 77 18 145/86 (105) 94 Room Air 04/25/17 23:45 Room Air 04/25/17 22:49 36.9 74 16 127/71 (89) 91 Room Air 04/25/17 16:30 Room Air 04/25/17 15:18 36.7 74 17 111/72 (85) 91 Room Air General Appearance: no apparent distress Respiratory/Chest: no respiratory distress Abdomen: soft Incision(s): intact, drainage (expected drainage) Laboratory Results: Results Past 24 Hours Test 04/26/17 05:41 Range/Units White Blood Count 8.65 4.8-10.8 K/uL Red Blood Count 3.80 4.2-5.4 M/uL Hemoglobin 11.1 12.0-16.0 g/dL Hematocrit 34.6 37-47 % Mean Corpuscular Volume 91.1 80-100 fL Mean Corpuscular Hemoglobin 29.2 25-34 pg Mean Corpuscular Hemoglobin Concent 32.1 32-36 g/dl Platelet Count 315 130-400 K/uL Mean Platelet Volume 9.2 7.4-10.4 fL Neutrophils (%) (Auto) 75.4 % Lymphocytes (%) (Auto) 14.1 % Monocytes (%) (Auto) 6.8 % Eosinophils (%) (Auto) 2.0 % Basophils (%) (Auto) 0.2 % Neutrophils # (Auto) 6.52 1.4-6.5 K/uL Lymphocytes # (Auto) 1.22 1.2-3.4 K/uL Monocytes # (Auto) 0.59 0.11-0.59 K/uL Eosinophils # (Auto) 0.17 0-0.5 K/uL Basophils # (Auto) 0.02 0-0.2 K/uL RDW Standard Deviation 43.9 36.4-46.3 fL RDW Coefficient of Variation 13.2 11.5-14.5 % Immature Granulocyte % (Auto) 1.5 % Immature Granulocyte # (Auto) 0.13 0.00-0.02 K/uL Sodium Level 142 136-145 mmol/L Potassium Level 3.6 3.5-5.1 mmol/L Chloride Level 110 98-107 mmol/L Carbon Dioxide Level 24 21-32 mmol/L Anion Gap 8.0 3-11 mmol/L Blood Urea Nitrogen 3 7-18 mg/dl Creatinine 0.50 0.60-1.20 mg/dl Est Creatinine Clear Calc Drug Dose 146.8 ml/min Estimated GFR () 127.2 Estimated GFR (Non- 109.7 BUN/Creatinine Ratio 5.6 10-20 Random Glucose 83 70-99 mg/dl Calcium Level 7.8 8.5-10.1 mg/dl Assessment & Plan 04/26/17- adv diet, activity, stop IV, cont atbx walk in hallway- leave drain- possible d/c tomorrow if progresses and ok with medical team 04/25/17- s/p lap benjamin- very difficult operation- severe acute and chronic disease with purulent bile- doing well adv diet, cont IV atbx, home with drain 2-3 days 04/24/17- check am labs/ K+, check with medical team- plan for lap benjamin today if possible- suspect infected gallbladder 04/25/17- s/p lap benjamin- very difficult operation- severe acute and chronic disease with purulent bile- doing well adv diet, cont IV atbx, home with drain 2-3 days 04/24/17- check am labs/ K+, check with medical team- plan for lap benjamin today if possible- suspect infected gallbladder
--- NOTE | 2017-04-26 14:16 | Progress Note ---
Subjective Date of Service: Apr 26, 2017. Subjective Pt evaluation today including: conversation w/ patient, physical exam, chart review, lab review, review of inpatient medication list feeling better no pain no nausea no diarrhea. still not eating great but notes it's not because she can't just because she doesn't really have much of an appetite Problem List Medical Problems: (1) Abdominal pain Status: Acute (2) Acute cholecystitis Status: Acute (3) Fever Status: Acute Review of Systems all other ROS otherwise negative except for as above Objective Vital Signs Date Time Temp Pulse Resp B/P (MAP) Pulse Ox O2 Delivery O2 Flow Rate FiO2 04/26/17 07:30 Room Air 04/26/17 07:23 36.8 77 18 145/86 (105) 94 Room Air 04/25/17 23:45 Room Air 04/25/17 22:49 36.9 74 16 127/71 (89) 91 Room Air 04/25/17 16:30 Room Air 04/25/17 15:18 36.7 74 17 111/72 (85) 91 Room Air Physical Exam General Appearance: no apparent distress Eyes: PERRL ENT: hearing grossly normal Neck: trachea midline Respiratory/Chest: no respiratory distress, no accessory muscle use Neurologic/Psychiatric: tool and die supervisor II-XII nml as tested, alert Skin: normal color, warm/dry Laboratory Results Last 24 Hours Test 04/26/17 05:41 White Blood Count 8.65 K/uL Red Blood Count 3.80 M/uL Hemoglobin 11.1 g/dL Hematocrit 34.6 % Mean Corpuscular Volume 91.1 fL Mean Corpuscular Hemoglobin 29.2 pg Mean Corpuscular Hemoglobin Concent 32.1 g/dl Platelet Count 315 K/uL Mean Platelet Volume 9.2 fL Neutrophils (%) (Auto) 75.4 % Lymphocytes (%) (Auto) 14.1 % Monocytes (%) (Auto) 6.8 % Eosinophils (%) (Auto) 2.0 % Basophils (%) (Auto) 0.2 % Neutrophils # (Auto) 6.52 K/uL Lymphocytes # (Auto) 1.22 K/uL Monocytes # (Auto) 0.59 K/uL Eosinophils # (Auto) 0.17 K/uL Basophils # (Auto) 0.02 K/uL RDW Standard Deviation 43.9 fL RDW Coefficient of Variation 13.2 % Immature Granulocyte % (Auto) 1.5 % Immature Granulocyte # (Auto) 0.13 K/uL Sodium Level 142 mmol/L Potassium Level 3.6 mmol/L Chloride Level 110 mmol/L Carbon Dioxide Level 24 mmol/L Anion Gap 8.0 mmol/L Blood Urea Nitrogen 3 mg/dl Creatinine 0.50 mg/dl Est Creatinine Clear Calc Drug Dose 146.8 ml/min Estimated GFR () 127.2 Estimated GFR (Non- 109.7 BUN/Creatinine Ratio 5.6 Random Glucose 83 mg/dl Calcium Level 7.8 mg/dl Assessment and Plan cholecystitis post choley, continue IV abx per surgery, home once OK w surgery hypokalemia/EKG changes - K improved. likely was poor PO intake/GI losses with gallbladder disease. replaced and EKG resolved tachypnea - quiet breath sounds and poor entry on incentive spirometry - likely relates to atelectasis - encouraged IS use and this is not an issue today poor appetite - no worrisome s/s (no pain/nausea/diarrhea/vomiting) - so likely just part of normal recovery DVT proph - early ambulation Continued [facility] stay due to: multiple IV medications needed Discharge planning: home
[2017-04-26 15:54] VITALS: BP 137/85; PULSE 67; TEMP 37.3; O2SAT 94
[2017-04-26] MEDS: AMOXICILLIN/CLAVULANATE TAB 875 MG TAB PO SCH (16:16)
[2017-04-26 22:55] VITALS: BP 128/77; PULSE 67; TEMP 36.7; O2SAT 93
[2017-04-27] MEDS: HYDROCODONE/ACETAMOPHEN 5/325MG TAB PO PRN ×2 (02:11→08:32)
[2017-04-27] MEDS: FAMOTIDINE 20 MG TAB PO SCH (06:26)
[2017-04-27] MEDS ORDERED: AMOX875T PO (07:14)
[2017-04-27] MEDS ORDERED: HYDR-5688 PO (07:14)
--- NOTE | 2017-04-27 07:17 | Discharge Instructions ---
Discharge Instructions Date of Service Apr 27, 2017. Admission Reason for Admission: Abnormal Ekg; Acute Cholecystitis Discharge Discharge Diagnosis / Problem: necrotizing cholecystitis Discharge Goals Goal(s): Decrease discomfort, Improve function, Improve disease control Activity Recommendations Activity Limitations: as noted below Lifting Limitations: no more than 25 pounds Exercise/Sports Limitations: until after follow-up appointment May Resume Sexual Activity: when tolerated Shower/Bathe: no limitations (don't soak in bathtub) Driving or Machine Use: resume 3 days after discharge SPECIAL CARE INSTRUCTIONS: * Cover incisions and change daily for comfort/drainage. * Empty drain 2-3 times per day and record. * May use ibuprofen for pain as tolerated. * Expect some swelling and bruising. Call your doctor if: * Temperature above 101 degrees * Pain not relieved by pain medicine ordered * There is increased drainage or redness from any incision * You have any unanswered questions or concerns [phone]. FOLLOW UP VISIT: If not already scheduled, please call the office for a follow-up visit. for next Mon/Mon- drain removal OFFICE PHONE NUMBER: Dr. Randolph Office . Current Hospital Diet Patient's current hospital diet: Regular Diet Discharge Diet Recommended Diet: Regular Diet Procedures Procedures Performed: Laparoscopic cholecystectomy, drain Pending Studies Studies pending at discharge: no Medical Emergencies . Who to Call and When: Medical Emergencies: If at any time you feel your situation is an emergency, please call 911 immediately. . Non-Emergent Contact Non-Emergency issues call your: Primary Care Provider, Surgeon . "Provider Documentation" section prepared by Barney Randolph. . VTE Core Measure Inpt VTE Proph given/why not?: SCD's
--- NOTE | 2017-04-27 07:32 | DISCHARGE SUMMARY ---
PRINCIPAL DIAGNOSIS: Necrotizing cholecystitis with sepsis. PROCEDURES: The patient underwent laparoscopic cholecystectomy with drainage. HISTORY OF PRESENT ILLNESS: The patient is a 56-year-old female presenting to the Emergency Room with fever and abdominal pain and found to have what appeared to be a severely infected gallbladder. She did have initially some hypokalemia and mild EKG changes which warranted admission to the telemetry unit. She did well overnight with correction of her electrolytes and was taken to the operating room on 04/24/2017 where she underwent laparoscopic cholecystectomy with drainage. Her gallbladder contained purulent bile and she had severe inflammation. The patient has done very well in the hospital advancing in both diet and activity and was felt stable for discharge home today with drain in place and on oral antibiotics and pain medication. She will be seen in the surgical clinic within 4-5 days for drain removal.
[2017-04-27] MEDS: AMOXICILLIN/CLAVULANATE TAB 875 MG TAB PO SCH (08:32)
[2017-04-27 08:55] VITALS: BP 130/82; PULSE 73; TEMP 36.9; O2SAT 91
[2017-04-27] MEDS ORDERED: DOCUSATE SODIUM/SENNA 50/8.6MG TAB PO SCH (09:00)
[2017-04-27 11:33] VITALS: TEMP 36.9
[2017-04-27 11:34] VITALS: BP 111/74; PULSE 70; TEMP 36.9; O2SAT 95
[2017-04-27] MEDS ORDERED: LCTX OR (12:47)
[2017-04-27] MEDS ORDERED: CEFD1CAP14 PO (12:47)
[2017-04-27] MEDS ORDERED: METR500T PO (12:47)
[2017-04-27 14:02] VITALS: BP 111/74; PULSE 70; TEMP 36.9; O2SAT 95
--- NOTE | 2017-04-27 18:04 | Progress Note ---
Subjective Date of Service: Apr 27, 2017. Subjective Pt evaluation today including: conversation w/ patient, physical exam, chart review, lab review, conversation w/ fitness consultant, review of inpatient medication list Problem List Medical Problems: (1) Abdominal pain Status: Acute (2) Acute cholecystitis Status: Acute (3) Fever Status: Acute Review of Systems Constitutional: No see HPI, No fever, No chills, No sweats, No weight loss, No weakness, No fatigue, No problem reported Eyes: No see HPI, No worsening of vision, No eye pain, No redness, No discharge , No diplopia, No problem reported ENT: No see HPI, No hearing loss, No unusual epistaxis, No nasal symptoms, No sore throat, No tinnitus, No dental problems, No trouble swallowing, No problem reported Respiratory: No see HPI, No cough, No sputum, No wheezing, No shortness of breath, No dyspnea on exertion, No dyspnea at rest, No hemoptysis, No problem reported Cardiac: No see HPI, No chest pain, No orthopnea, No PND, No edema, No claudication, No palpitations, No problem reported Abdomen: + pain, No see HPI, No nausea, No vomiting, No diarrhea, No constipation, No GI bleeding, No problem reported Musculoskeletal: No see HPI, No joint pain, No muscle pain, No swelling, No calf pain, No problem reported Female : No see HPI, No dysuria, No urinary frequency, No hematuria, No incontinence, No abnormal vaginal bleeding, No vaginal discharge, No problem reported Neurologic: No see HPI, No memory loss, No paralysis, No weakness, No numbness/ tingling, No vertigo, No balance problems, No problem reported Psychiatric: No see HPI, No depression symptoms, No anhedonism, No anxiety, No insomnia, No substance abuse, No problem reported Endo: No see HPI, No fatigue, No excessive thirst, No excessive urination, No problem reported Skin: No see HPI, No rash, No itch, No new/changing skin lesions, No color change, No bleeding, No problem reported Objective Vital Signs Date Time Temp Pulse Resp B/P (MAP) Pulse Ox O2 Delivery O2 Flow Rate FiO2 04/27/17 14:02 36.9 70 16 95 Room Air 04/27/17 11:34 36.9 70 16 111/74 (86) 95 Room Air 04/27/17 11:33 36.9 04/27/17 08:55 36.9 73 16 130/82 (98) 91 Room Air 04/27/17 08:30 Room Air 04/26/17 22:55 36.7 67 16 128/77 (94) 93 Room Air 04/26/17 21:17 Room Air Physical Exam General Appearance: WD/WN, no apparent distress Eyes: normal inspection, EOMI ENT: normal ENT inspection, hearing grossly normal Neck: supple Respiratory/Chest: chest non-tender, lungs clear, normal breath sounds, no respiratory distress, no accessory muscle use Cardiovascular: regular rate, rhythm, no edema, no gallop, no JVD, no murmur Abdomen: normal bowel sounds, + distended, + tenderness Extremities: normal range of motion, non-tender, normal inspection, no pedal edema Neurologic/Psychiatric: station master II-XII nml as tested, no motor/sensory deficits, alert, normal mood/affect, oriented x 3 Skin: normal color, warm/dry, no rash Assessment and Plan Assessment Necrotic gangrenous cholecystitis/ purulent spillage of pus in the abdomen during removal of the gallbladder/intra-abdominal sepsis Cholelithiasis Hyperkalemia Abdominal pain/shortness of breath secondary to above Plan Status post laparoscopic cholecystectomy large drain in place to be removed as an outpatient on Monday or Monday Treated with Zosyn while inpatient Will cover patient with one-week post surgical antibiotics of Flagyl and Ceftin your, discussed with Dr. Randolph who agrees with the plan Okay to discharge from medical aspect and to follow-up as an outpatient Continued [facility] stay due to: multiple IV medications needed Discharge planning: home
== END 2017-04-27 14:52 | disposition home or self-care (01) | DRG 419 ==
LOC: C.EDB 10:01 → C.2E 18:47 → CANRESERV 18:47 → ENRESERV 18:47 → EDBEDREQSVC 18:50 → EDBEDREQTM 18:50 → ENRESERV 18:59 → C.MSW 04-24 17:18
PROVIDERS: ADMIT Hospitalist; ATTEND Internal Medicine
PROC: 0FT44ZZ Resection of Gallbladder, Percutaneous Endoscopic Approach (ICD-10-PCS; principal; 2017-04-24 10:45)
DX: K81.2 Acute cholecystitis with chronic cholecystitis (principal); E87.6 Hypokalemia

== ENCOUNTER → 2017-05-22 | Outpatient (CLI) | payer OTHER ==
[~2017-05-22] MED LIST changes: +ACET-1256 PO; +HYDR-5688 PO; +IBUP-1050 PO; +LCTX OR; +MULT-190 PO; -MULT-506 PO
--- NOTE | 2017-05-22 11:49 | DIAGNOSTIC IMAGING REPORT ---
ABDOMEN LIMITED (US) CLINICAL HISTORY: 56 years-old Female presenting with Z90.49 Status post laparoscopic cholecystectomy. TECHNIQUE: Real-time grayscale and limited color Doppler ultrasound imaging of the abdomen limited to the right upper quadrant was performed. COMPARISON: CT from 04/23/2017. FINDINGS: Pancreas: Largely obscured due to overlying bowel gas. Liver: Grossly normal in echogenicity. Biliary: No intrahepatic biliary ductal dilatation. However, a 6 mm hyperechogenic filling defect noted in the common duct concerning for choledocholithiasis. Common bile duct measures up to 8 mm in diameter. Gallbladder: Surgically absent. Right kidney: Not evaluated. Ascites: None. IMPRESSION: Findings concerning for choledocholithiasis. Mild extrahepatic biliary duct dilatation. Further evaluation with MRCP could be considered as clinically indicated. Electronically signed by: Juanito Pacheco M.D. 05/22/2017 11:48 AM Dictated Date/Time: 05/22/2017 11:46 AM
[2017-05-22 13:28] LABS: HEMATOCRIT 41.1 % (37-47); MEAN CELL VOLUME 89.9 fL (80-100); MEAN CORPUSCULAR HGB CONC 33.3 g/dl (32-36); RED BLOOD COUNT 4.57 M/uL (4.2-5.4)
[2017-05-22 13:29] LABS: MEAN PLATELET VOLUME 10.7 fL (7.4-10.4); PLATELET COUNT 253 K/uL (130-400)
[2017-05-22 14:10] LABS: ALT/SGPT 14 U/L (12-78); AST/SGOT 13 U/L (15-37); BLOOD UREA NITROGEN 13 mg/dl (7-18); BUN/CREATININE RATIO 18.9 (10-20); CALCIUM 8.6 mg/dl (8.5-10.1); CARBON DIOXIDE 24 mmol/L (21-32); CHLORIDE 104 mmol/L (98-107); GLUCOSE 92 mg/dl (70-99); POTASSIUM 3.7 mmol/L (3.5-5.1); SODIUM 139 mmol/L (136-145)
[2017-05-22 14:13] LABS: ALKALINE PHOSPHATASE 111 U/L (45-117)
== END | disposition home or self-care (01) ==
LOC: C.ULTRBC 10:50
PROVIDERS: ATTEND Surgery
DX: Z90.49 Acquired absence of other specified parts of digestive tract (principal)

== ENCOUNTER 2017-05-24 13:35 | Day surgery (SDC) | payer OTHER ==
[~2017-05-24] VITALS: Ht 167.6 cm; Wt 86.5 kg
[~2017-05-24 13:35] MED LIST changes: -ACET-1256 PO; +CIPROFLOXACIN / D5W 400 MG IV SCH; -IBUP-1050 PO; +INDOMETHACIN 50 MG SUPP PR SCH; +LACTATED RINGER'S 1000ML 1,000 ML IV SCH
[2017-05-24] MEDS ORDERED: ACET-1256 PO (13:57)
[2017-05-24] MEDS ORDERED: IBUP-1050 PO (13:57)
--- NOTE | 2017-05-24 13:57 | History and Physical ---
History & Physical Date May 24, 2017. Chief Complaint CBD stone History of Present Illness The patient is a 56 year old female with complaints of back pain. US shows CBD stone. Past Medical/Surgical History Medical Problems: (1) Abnormal EKG (2) Cellulitis of left foot Allergies Coded Allergies: No Known Allergies (Verified , 05/24/17) Home Medications Scheduled Lactobacillus Acidophilus (Floranex), 2 TAB OR TID Ocuvite Preservision (Ocuvite Preservision), 1 TAB PO DAILY Scheduled PRN Hydrocodone/Acetaminophen 5MG/325MG ([place] 5MG/325MG), 1-2 TABLET PO q 6 hrs PRN for Pain Physical Examination Skin: warm/dry, no rash Eyes: normal inspection, EOMI, sclerae normal ENT: + pertinent finding ([place]i scor of 4) Head: normocephalic, atraumatic Neck: supple, no adenopathy, trachea midline Respiratory/Chest: lungs clear, normal breath sounds, no respiratory distress Cardiovascular: regular rate, rhythm, no edema, no murmur Abdomen / GI: + pertinent finding (laparoscopy scars) Back: normal inspection Extremities: normal inspection, normal range of motion Neurologic/Psych: no motor/sensory deficits, alert, normal reflexes, oriented x 3 Diagnosis CBD stone ASA Classification: ASA Class II Plan of Treatment For ERCP and stone extraction
[2017-05-24 14:00] VITALS: BP 118/61; PULSE 61; TEMP 36.6; O2SAT 97; Ht 167.6 cm; Wt 86.5 kg
[2017-05-24] MEDS ORDERED: SODIUM CHLORIDE 0.9% 1000ML 1,000 ML IV SCH (14:00)
[2017-05-24 14:01] LABS: HEMATOCRIT 42.2 % (37-47); MEAN CELL VOLUME 88.3 fL (80-100); MEAN CORPUSCULAR HEMOGLOBIN 29.7 pg (25-34); PLATELET COUNT 243 K/uL (130-400); RED BLOOD COUNT 4.78 M/uL (4.2-5.4); WHITE BLOOD COUNT 13.12 K/uL (4.8-10.8)
[2017-05-24 14:07] LABS: MEAN CORPUSCULAR HGB CONC 33.6 g/dl (32-36)
[2017-05-24 14:08] LABS: INR 1.1 (0.9-1.1); PROTHROMBIN TIME (PATIENT) 11.3 SECONDS (9.0-12.0)
[2017-05-24 14:18] LABS: BUN/CREATININE RATIO 12.2 (10-20); CALCIUM 9.1 mg/dl (8.5-10.1); CREATININE 0.78 mg/dl (0.60-1.20); POTASSIUM 3.9 mmol/L (3.5-5.1)
[2017-05-24 14:26] LABS: ALB/GLOB RATIO 0.9 (0.9-2)
[2017-05-24] MEDS ORDERED: LIDOCAINE HCL 2% 2 ML VIAL (20MG/ML) ONE (15:00)
[2017-05-24] MEDS ORDERED: ROCURONIUM BROMIDE 10 MG/ML 5 ML VIAL IV ONE (15:00)
[2017-05-24] MEDS ORDERED: PROPOFOL IV EMULSION 10 MG/ML 20 ML VIAL IV ONE (15:00)
[2017-05-24] MEDS ORDERED: SUCCINYLCHOLINE CHLORIDE 20 MG/ML 10 ML VIAL IV ONE (15:00)
[2017-05-24] MEDS ORDERED: MIDAZOLAM HCL 1 MG/ML 2ML VIAL ONE (15:01)
[2017-05-24] MEDS ORDERED: FENTANYL CITRATE INJ 50 MCG/1 ML 2 ML VIAL ONE (15:01)
[2017-05-24] MEDS ORDERED: INDOMETHACIN 50 MG SUPP PR ONE (15:43)
[2017-05-24] MEDS ORDERED: DEXAMETHASONE SOD INJ 4 MG/ML VIAL ONE (15:56)
[2017-05-24] MEDS ORDERED: ONDANSETRON INJ 2 MG/ML 2 ML VIAL ONE (15:56)
[2017-05-24] MEDS ORDERED: LARYING-O-JET KIT (LTA) ONE ×2 (15:59)
[2017-05-24] MEDS ORDERED: MEPERIDINE HCL 25 MG/ML CARP IV PRN (16:15)
[2017-05-24] MEDS ORDERED: HYDROmorphone INJ 1 MG/ML SYR IV PRN (16:15)
[2017-05-24] MEDS ORDERED: LABETALOL HCL IV 5 MG/ML 20ML IV PRN (16:15)
[2017-05-24] MEDS ORDERED: EpHEDrine SULFATE INJ 50 MG/ML AMP IV PRN (16:15)
[2017-05-24] MEDS ORDERED: ATROPINE SULFATE 0.1 MG/ML 5ML SYR IV PRN (16:15)
[2017-05-24] MEDS ORDERED: FENTANYL CITRATE INJ 50 MCG/1 ML 2 ML VIAL IV PRN (16:15)
[2017-05-24] MEDS ORDERED: ONDANSETRON INJ 2 MG/ML 2 ML VIAL IV PRN (16:15)
--- NOTE | 2017-05-24 16:15 | Discharge Instructions ---
Endoscopy Patient Instructions Date / Procedure(s) Performed May 24, 2017. ERCP Allergy Information Coded Allergies: No Known Allergies (Verified , 05/24/17) Discharge Date / Findings May 24, 2017. CBD stone removed, duodenal diverticulum Medication Instructions Restart Stopped Medication(s): resume meds Reported Home Medications Medications Dose Route/Sig Max Daily Dose Days Date Category Dose Instructions Advil (Ibuprofen) 200 Mg Tab 400 Mg PO 05/24/17 Reported Tylenol (Acetaminophen) 500 Mg Tab 2 Tab PO Q6 2 05/24/17 Reported Floranex (Lactobacillus Acidophilus) 1 Tab Tab 2 Tab OR TID 14 04/27/17 Rx [place] 5MG/325MG (Acetaminophen/Hydrocodone Bitart) Tab 1-2 Tablet PO Q 6 HRS PRN 04/27/17 Rx PRN PAIN Ocuvite Preservision (Multivitamins/Minerals) 1 Tab Tab 1 Tab PO DAILY 04/23/17 Reported Provider Instructions Activity Restrictions - No exercising or heavy lifting for 24 hours. - Do not drink alcohol the day of the procedure. - Do not drive a car or operate machinery until the day after the procedure. - Do not make any important decisions or sign important papers in 24 hours after the procedure. Following Day: - Return to full activity which may include returning to work/school. Diet Start your diet with liquids and light foods (jello, soup, juice, toast). Then eat your usual diet if not nauseated. Treatment For Common After Affects For mild abdominal pain, bloating, or excessive gas: - Rest - Eat lightly - Lie on right side Follow-Up Information Follow-up with as scheduled Anesthesia Information What You Should Know You have had a procedure that required some medicine to reduce anxiety and discomfort. This treatment is called moderate sedation. After receiving the treatment, you may be sleepy, but you will be able to breathe on your own. The effects of the treatment may last for several hours. Follow these instructions along with Activity/Diet recommendations noted above: * Do NOT do anything where dizziness or clumsiness would be dangerous. * Rest quietly at home today, then you can be up and about tomorrow. * Have a responsible person stay with you the rest of today. * You may have had an I.V. today. If so, you may take the dressing off later today. Recommendations Call your doctor if: * Trouble breathing * Continuous vomiting for more than 24 hours * Temperature above 101 degrees * Severe abdominal pain or bloating * Pain not relieved by pain medicine ordered * There is increased drainage or redness from any incision * A large amount of rectal bleeding greater than 2-3 tablespoons. (If you had a polyp/s removed or have hemorrhoids, a small amount of blood - from the rectum is to be expected.) * You have any unanswered questions or concerns. IN THE EVENT OF A SERIOUS EMERGENCY, GO TO THE NEAREST EMERGENCY ROOM Your discharge instructions were prepared by provider Saroj Linn. Patient Instructions Signature Page Iesha Saenz Patient (or Guardian) Signature/Date: I have read and understand the instructions given to me by my caregivers. Caregiver/RN/Doctor Signature/Date: The above-named patient and/or guardian has received patient instructions on this date. + Original Patient Signature Page (only) stays with chart. Please make copy for patient.
--- NOTE | 2017-05-24 16:21 | GI REPORT ---
Procedure Date: 05/24/2017 3:32 PM Procedure: ERCP Indications: Bile duct stone(s) Medicines: General Anesthesia Complications: No immediate complications. Estimated Blood Loss: Estimated blood loss: none. Procedure: Pre-Anesthesia Assessment: - Prior to the procedure, a History and Physical was performed, and patient medications, allergies and sensitivities were reviewed. The patient's tolerance of previous anesthesia was reviewed. - The risks and benefits of the procedure and the sedation options and risks were discussed with the patient. All questions were answered and informed consent was obtained. After obtaining informed consent, the scope was passed under direct vision. Throughout the procedure, the patient's blood pressure, pulse, and oxygen saturations were monitored continuously. The scope was introduced through the mouth, and advanced to the duodenum and used to inject contrast into the bile duct. The ERCP was accomplished without difficulty. The patient tolerated the procedure well. Findings: A 4 mm biliary sphincterotomy was made with a Autotome sphincterotome using ERBE electrocautery. There was no post-sphincterotomy bleeding. Choledocholithiasis was found in a nondilated duct. The common hepatic duct contained one stone, which was 6 mm in diameter. The biliary tree was swept with an 8 mm balloon starting at the upper third of the main bile duct. One stone was removed. No stones remained. The major papilla was located entirely within a diverticulum. The major papilla was normal. Impression: - A sphincterotomy was performed. - The biliary tree was swept. - The major papilla was located entirely within a diverticulum. - The major papilla appeared normal. - Choledocholithiasis was found. Complete removal was accomplished by biliary sphincterotomy and balloon extraction. Recommendation: - Discharge patient to home (ambulatory). - Continue present medications. - Return to primary care physician MARIANAN. Saroj Linn M.D. Saroj Linn MD 05/24/2017 4:20:43 PM This report has been signed electronically. Note Initiated On: 05/24/2017 3:32 PM I attest to the content of the Intraoperative Record and orders documented therein, exceptions below
--- NOTE | 2017-05-24 16:33 | DIAGNOSTIC IMAGING REPORT ---
ERCP BILIARY DUCTAL CLINICAL HISTORY: 56 years-old Female presenting with ERCP. TECHNIQUE: Fluoroscopy was provided for an intraoperative cholangiogram status post cholecystectomy. Contrast was injected through the cystic duct remnant. COMPARISON: CT from 04/23/2017. FINDINGS: And endoscope is in place in the region of the descending portion of the duodenum. The common duct has been cannulated and opacified with contrast. No gross evidence of a filling defect in the common duct. Normal opacification of the intrahepatic ducts without evidence of filling defect. Nonopacification of the cystic duct remnant. Cholecystectomy clips noted. Fluoroscopy dosage (mGy): Not available. Fluoroscopy time: 2 minutes 30 seconds. Number of fluoroscopic spot images: 3. IMPRESSION: Fluoroscopy provided for an intraoperative cholangiogram status post cholecystectomy. No filling defects within the common bile duct. Electronically signed by: Juanito Pacheco M.D. 05/24/2017 4:32 PM Dictated Date/Time: 05/24/2017 4:30 PM
--- NOTE | 2017-05-24 16:44 | Anesthesiology Progress Note ---
Anesthesia Post Op Note Date & Time May 24, 2017 at 16:43 Vital Signs Pain Intensity: 0 Vital Signs Past 12 Hours Date Time Temp Pulse Resp B/P (MAP) Pulse Ox O2 Delivery O2 Flow Rate FiO2 05/24/17 16:40 69 20 136/88 100 Oxymask 10 05/24/17 16:30 72 19 140/83 100 Oxymask 10 05/24/17 16:22 37.0 75 12 156/90 100 Oxymask 10 05/24/17 14:00 36.6 61 18 118/61 (80) 97 Room Air Notes Mental Status: alert / awake / arousable, participated in evaluation Pt Amnestic to Procedure: Yes Nausea / Vomiting: adequately controlled Pain: adequately controlled Airway Patency, RR, SpO2: stable & adequate BP & HR: stable & adequate Hydration State: stable & adequate Anesthetic Complications: no major complications apparent
[2017-05-24 17:05] VITALS: BP 156/71; PULSE 82; TEMP 37.1; O2SAT 96
== END 2017-05-24 18:00 | disposition home or self-care (01) ==
LOC: C.ACU 13:35
PROVIDERS: ATTEND Internal Medicine Gastroenterology
DX: K80.50 Calculus of bile duct without cholangitis or cholecystitis without obstruction (principal); Z90.49 Acquired absence of other specified parts of digestive tract; Z79.899 Other long term (current) drug therapy